=== PATIENT | male | born 1950 | race Caucasian/White ===

== ENCOUNTER 2019-01-18 07:47 | Day surgery (SDC) | payer MEDICARE, OTHER ==
[2019-01-11 11:36] LABS: HEMOGLOBIN 12.3 g/dL (13.5-17.0); MEAN CORPUSCULAR HGB CONC 33.3 g/dL (32.0-36.0); MEAN CORPUSCULAR VOLUME 90 fl (80-97); PLATELET COUNT 188 10^3/uL (150-450); RED CELL DISTRIBUTION WIDTH 13.9 % (11.5-14.0); WHITE BLOOD COUNT 5.3 10^3/uL (4.0-10.5)
[2019-01-11 12:06] LABS: ANION GAP 12 (5-19); BLOOD UREA NITROGEN 38 mg/dL (7-20); CALCIUM 9.6 mg/dL (8.4-10.2); CARBON DIOXIDE 26 mmol/L (22-30); CHLORIDE 98 mmol/L (98-107); GLUCOSE 266 mg/dL (75-110); POTASSIUM 5.9 mmol/L (3.6-5.0)
--- NOTE | 2019-01-11 13:16 | RADIOLOGY REPORT (SQ) ---
EXAM DESCRIPTION: CHEST PA/LATERAL COMPLETED DATE/TIME: 01/11/2019 11:09 am REASON FOR STUDY: PERSONAL HISTORY OF COLONIC POLYPS,ENCOUNTER FOR OTHER PREPROCEDURAL EXAMIN COMPARISON: 12/05/2014 EXAM PARAMETERS: NUMBER OF VIEWS: two views TECHNIQUE: Digital Frontal and Lateral radiographic views of the chest acquired. RADIATION DOSE: NA LIMITATIONS: none FINDINGS: LUNGS AND PLEURA: Reduced volume in the right lung compared to the earlier study. Scarrin g the right upper lobe. No infiltrate, effusion, or mass. MEDIASTINUM AND HILAR STRUCTURES: No masses or contour abnormalities. HEART AND VASCULAR STRUCTURES: Heart size is borderline. No pulmonary edema. BONES: No acute findings. HARDWARE: None in the chest. OTHER: No other significant finding. IMPRESSION: Borderline cardiomegaly without pulmonary edema. No acute pulmonary findings. TECHNICAL DOCUMENTATION: JOB ID: [id number] [employer]- All Rights Reserved Reading location - IP/workstation name: [email or web address]
--- NOTE | 2019-01-11 14:34 | EKG REPORT ---
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
[~2019-01-18 07:47] MED LIST: LACTATED RINGERS 1000 ML IV PRN; LIDOCAINE 0.5% INJ-PF (5 MG/ML) 50 ML SDV SUBCUT PRN; MIDAZOLAM 2 MG/2 ML INJ ONE; PROPOFOL INJ 200 MG/20 ML VIAL IV ONE
[2019-01-18] MEDS ORDERED: LIDOCAINE 0.5% INJ-PF (5 MG/ML) 50 ML SDV ONE (08:19)
[2019-01-18] MEDS ORDERED: MORPHINE SULFATE 10 MG/ML INJ IV PRN (11:19)
[2019-01-18] MEDS ORDERED: PROMETHAZINE HCL INJ 25 MG/1 ML VIAL IV PRN ×2 (11:19)
[2019-01-18] MEDS ORDERED: ONDANSETRON HCL INJ/PF 4 MG/2 ML SDV IV PRN (11:19)
[2019-01-18] MEDS ORDERED: DIPHENHYDRAMINE HCL 50 MG/ML VIAL IV PRN (11:19)
[2019-01-18] MEDS ORDERED: FENTANYL CITRATE INJ/PF 100 MCG/2 ML AMPUL IV PRN ×3 (11:19)
[2019-01-18] MEDS ORDERED: MEPERIDINE HCL/PF INJ 25 MG/1 ML DISP.SYRIN IV PRN (11:19)
--- NOTE | 2019-01-18 12:07 | Discharge Summary ---
Discharge Summary (SDC) - Discharge Final Diagnosis: multiple colon polyps Date of Surgery: 01/18/19 Discharge Date: 01/18/19 Condition: Stable Treatment or Instructions: Discharge home. Diet as tolerated. Activity: Nonstrenuous. Follow-up with me in 2 weeks. Referrals: ASHLEIGH DUBOIS DO [Primary Care Provider] - Discharge Diet: As Tolerated Respiratory Treatments at Home: Deep Breathing/Coughing, Incentive Spirometer Discharge Activity: Activity As Tolerated, Balance Activity w/Rest Home Care Assistance: None Needed Report the Following to Your Physician Immediately: Shortness of Breath, Nausea, Vomiting, Increase in Pain, Fever over 101 Degrees, Unusual Bleeding, Redness
--- NOTE | 2019-01-18 12:17 | Operative Report ---
Nonrecallable Operative Report DATE OF SURGERY: 01/18/19 PREOPERATIVE DIAGNOSIS: h/o colon polyps POSTOPERATIVE DIAGNOSIS: Multiple colon polyps OPERATION: 1. Colonoscopy to the cecum. 2. Snare polypectomy of multiple polyps throughout the colon. SURGEON: FRANK CROOKS ANESTHESIA: LMAC TISSUE REMOVED OR ALTERED: 1. Ascending colon polyp x2. 2. Hepatic flexure polyp. 3. Transverse colon polyp x2. 4. Descending colon polyp. 5. Colon polyp at 80 cm. 6. Polyp at 45 cm. 7. Polyp at 20 cm. COMPLICATIONS: None apparent ESTIMATED BLOOD LOSS: Minimal PROCEDURE: Procedure in detail: After informed consent was obtained, the patient was brought to the operating room and laid in the left lateral decubitus position. The endoscope was passed up the rectum, sigmoid colon, descending colon, across the transverse colon, down the ascending colon, and cecum. The ileocecal valve and appendiceal orifice were identified. The scope was then withdrawn, circumferentially noting the mucosa. The prep was good. There was a small amount of liquid stool within the colon that was easily suctioned. The scope w as withdrawn past the ascending colon, transverse colon, down the descending colon, sigmoid colon, and into the rectum. There were multiple small polyps found throughout the colon. Please see the specimen list for details about their location. There were 9 polyps removed in all. They were all removed via hot snare polypectomy. Once the rectum was reached, a retroflexion maneuver was performed, noting no significant internal hemorrhoids. The scope was straightened, air was suctioned from the rectum, the scope was removed, and the procedure was concluded. All sponge, instrument, needle counts were correct. Condition: Stable.
[2019-01-18 14:38] VITALS: BP 151/76
== END 2019-01-18 13:10 | disposition home or self-care (01) ==
LOC: OROUT 07:47
PROVIDERS: ATTEND Surgery
DX: Z12.11 Encounter for screening for malignant neoplasm of colon (principal); D12.2 Benign neoplasm of ascending colon; D12.6 Benign neoplasm of colon, unspecified; D12.3 Benign neoplasm of transverse colon; D12.4 Benign neoplasm of descending colon; Z86.010 Personal history of colon polyps; Z01.818 Encounter for other preprocedural examination; K21.9 Gastro-esophageal reflux disease without esophagitis; I10 Essential (primary) hypertension; Z85.118 Personal history of other malignant neoplasm of bronchus and lung; I48.91 Unspecified atrial fibrillation; E11.40 Type 2 diabetes mellitus with diabetic neuropathy, unspecified; G47.30 Sleep apnea, unspecified; J44.9 Chronic obstructive pulmonary disease, unspecified; Z87.891 Personal history of nicotine dependence; Z79.82 Long term (current) use of aspirin; Z79.899 Other long term (current) drug therapy; Z79.84 Long term (current) use of oral hypoglycemic drugs; Z79.4 Long term (current) use of insulin; Z79.51 Long term (current) use of inhaled steroids
CPT/HCPCS: 93005; 36415 ×2; 82962; 84132; 85027; 80048; 88305 ×2; 71046; 93010; 45385; J2250; J3490; J2704; 811

== ENCOUNTER 2019-05-02 09:44 | Day surgery (SDC) | payer MEDICARE, OTHER ==
[~2019-05-02 09:44] MED LIST changes: +CHONDR SU A NA/HYALUR INTRAOC KIT (SURGICARE) ONE; +EPINEPHRINE INJ/PF 1 MG/1 ML AMPULE ONE; +KETOROLAC TROMETHAMINE 0.45% 4 DROP/0.4 ML DROPERETTE OS PRN; -LACTATED RINGERS 1000 ML IV PRN; -LIDOCAINE 0.5% INJ-PF (5 MG/ML) 50 ML SDV SUBCUT PRN; +LIDOCAINE 1%/PHENYLEPHRINE 1.5% 1 ML VIAL ONE; -MIDAZOLAM 2 MG/2 ML INJ ONE; -PROPOFOL INJ 200 MG/20 ML VIAL IV ONE
[2019-05-02] MEDS ORDERED: FENTANYL CITRATE INJ/PF 100 MCG/2 ML AMPUL ONE (09:45)
[2019-05-02] MEDS ORDERED: MIDAZOLAM 2 MG/2 ML INJ ONE (09:45)
[2019-05-02] MEDS ORDERED: ONDANSETRON HCL INJ/PF 4 MG/2 ML SDV ONE (09:45)
[2019-05-02] MEDS: TETRACAINE HCL 0.5% OPH SOLN 4 ML OS PRN ×3 (10:50→11:28)
[2019-05-02] MEDS: TROPICAMIDE 1% OPH SOLN 15 ML OS PRN ×3 (10:50→11:10)
[2019-05-02] MEDS: CYCLOPENTOLATE 0.2%/PHENYLEPHRINE 1% OPH SOLN 2 ML OS PRN ×3 (10:50→11:10)
[2019-05-02] MEDS: BESIFLOXACIN HCL 0.6% OPH SUSP 5 ML BOTTLE OS PRN ×4 (10:50→11:47)
[2019-05-02] MEDS: DORZOLAMIDE HCL 2%/TIMOLOL MALEAT 0.5% OPH SOLN 10 ML OS PRN ×2 (11:47)
--- NOTE | 2019-05-02 13:14 | Operative Report ---
Operative Report-[facility] Operative Report: DATE OF SURGERY: 05/02/2019 PREOPERATIVE DIAGNOSIS: Cataract, left eye, Pupil Miosis POSTOPERATIVE DIAGNOSIS: Cataract, left eye, Pupil miosis OPERATION: Complex Cataract extraction with insertion of an IOL of the left eye and use of a maluygan ring due to pupil dilation of less than 4mm. Intraocular Lens Model: [22.0 sn60wf] And for surgery was difficulty seeing small print SURGEON: Reji Rosado MD ANESTHESIA: Topical PROCEDURE: After obtaining appropriate consent, the patient's left eye was prepped and draped in a sterile fashion as well as the surgeon in the sterile manner and cataract surgery was started. First a paracentesis blade was used to make a side-port incision. Viscoelastic was used to inflate the anterior chamber. Next a 2.4 mm incision was made with a 2.4 mm blade, clear corneal temporarily. A continuous capsulorrhexis was made using a cystotome and Utrata forceps. Following this hydrodissection was carried out to make the lens fully loose and mobile and it was rotated freely. Following this, a divide and conquer technique was used to phacoemulsify the lens.. The remaining cortex was removed with an irrigation/aspiration. Provisc was instilled into the capsular bag to inflate the bag. The intraocular lens was placed. The remaining viscoelastic material was removed with irrigation/aspiration. Following this, the incision was found to be watertight. Prior to making the capsulorhexis a maluygan ring was inserted due to poor pupillary dilation. This was removed at the end of the case. Besivance and Cosopt was instilled into the eye and a protective shield was placed over the eye. The patient was returned to the postoperative recovery in a stable condition.
== END 2019-05-02 12:24 | disposition home or self-care (01) ==
LOC: SC 09:44
PROVIDERS: ATTEND Internal Medicine
DX: H25.812 Combined forms of age-related cataract, left eye (principal); H57.03 Miosis; E11.9 Type 2 diabetes mellitus without complications; H01.00A Unspecified blepharitis right eye, upper and lower eyelids; H01.00B Unspecified blepharitis left eye, upper and lower eyelids; H04.123 Dry eye syndrome of bilateral lacrimal glands; Z96.1 Presence of intraocular lens
CPT/HCPCS: 66982; 82962; 00142; V2632; J2250; J3490 ×2; A9270; J0171; J3010; J2405; J2370; 142

== ENCOUNTER 2019-07-13 09:24 | Emergency (ER) | payer MEDICARE, OTHER ==
--- NOTE | 2019-07-13 09:31 | ER Document Report ---
ED Medical Screen (RME) - General Chief Complaint: Chest Pain Stated Complaint: CHEST PAIN Time Seen by Provider: 07/13/19 09:30 Primary Care Provider: ASHLEIGH DUBOIS DO [Primary Care Provider] - Follow up as needed TRAVEL OUTSIDE OF THE [place] IN LAST 30 DAYS: No - HPI Notes: 07/13/19 09:53 69-year-old male to the emergency department with complaints of chest pain across his chest since 4 AM this morning. He states that he has felt a little bit short of breath with it. He states that he is a diabetic and has high blood pressure as well as high cholesterol. 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 He states that his calf is a little bit more swollen. He also admits that he has been coughing. He denies any fevers or chills. He denies increased pain of the chest with big deep breath. He states it runs all the way from the left side over to the right but seems to be centralized in the middle. He has never had chest pain like this before. I performed a brief medical screening exam on the patient and determined that he needs further evaluation by me inside provider. I placed initial orders to help expedite his care. - Related Data Allergies/Adverse Reactions: BEE STINGS Allergy (Uncoded 07/13/19 09:40) Past Medical History - Past Medical History Cardiac Medical History: Reports: Hx Coronary Artery Disease - HIGH CHOL, Hx Hypertension - medicated Denies: Hx Heart Attack Pulmonary Medical History: Reports: Hx COPD - INHALER IF NEEDED Denies: Hx Asthma, Hx Bronchitis, Hx Pneumonia Neurological Medical History: Denies: Hx Cerebrovascular Accident, Hx Seizures GI Medical History: Denies: Hx Hepatitis, Hx Hiatal Hernia, Hx Ulcer Infectious Medical History: Denies: Hx Hepatitis Past Surgical History: Denies: Hx Open Heart Surgery, Hx Pacemaker - Immunizations Hx Diphtheria, Pertussis, Tetanus Vaccination: No - UNSURE Physical Exam - Vital signs Vitals: Pulse Ox 96 07/13/19 09:27 Course - Vital Signs Vital signs: Temp Pulse Resp BP Pulse Ox 98.4 F 96 07/13/19 09:40 07/13/19 09:27 - Laboratory Result Diagrams: 07/13/19 09:29 07/13/19 09:29 Doctor's Discharge - Discharge Referrals: ASHLEIGH DUBOIS DO [Primary Care Provider] - Follow up as needed
[2019-07-13 09:43] LABS: ABSOLUTE EOSINOPHILS # (AUTO) 0.2 10^3/uL (0.0-0.6); ABSOLUTE LYMPHOCYTES (AUTO) 1.5 10^3/uL (0.5-4.7); ABSOLUTE MONOCYTES (AUTO) 1.1 10^3/uL (0.1-1.4); ABSOLUTE NEUT (AUTO) 8.1 10^3/uL (1.7-8.2); BASOPHILS % (AUTO) 0.4 % (0-2); HEMATOCRIT 36.2 % (37.9-51.0); HEMOGLOBIN 12.4 g/dL (13.5-17.0); LYMPHOCYTES % (AUTO) 13.4 % (13-45); MEAN CORPUSCULAR HGB CONC 34.1 g/dL (32.0-36.0); MEAN CORPUSCULAR VOLUME 88 fl (80-97); MONOCYTES % (AUTO) 10.3 % (3-13); PLATELET COUNT 256 10^3/uL (150-450); RED BLOOD COUNT 4.12 10^6/uL (4.35-5.55); RED CELL DISTRIBUTION WIDTH 15.2 % (11.5-14.0); SEGMENTED NEUTROPHILS % (AUTO) 73.9 % (42-78); TOTAL CELLS COUNTED % (AUTO) 100 %; WHITE BLOOD COUNT 10.9 10^3/uL (4.0-10.5)
[2019-07-13] MEDS ORDERED: IPRATROPIUM/ALBUTEROL 0.5-2.5 MG/3 ML AMPUL NEB ONE (09:52)
[2019-07-13] MEDS ORDERED: ASPIRIN 81 MG TABLET, CHEWABLE PO ONE (09:52)
[2019-07-13 09:58] LABS: ALBUMIN 3.2 g/dL (3.5-5.0); ALKALINE PHOSPHATASE 124 U/L (38-126); ANION GAP 11 (5-19); ASPARTATE AMINO TRANSFERASE 20 U/L (17-59); BILIRUBIN,TOTAL 0.9 mg/dL (0.2-1.3); BLOOD UREA NITROGEN 28 mg/dL (7-20); CALCIUM 8.6 mg/dL (8.4-10.2); CARBON DIOXIDE 24 mmol/L (22-30); CHLORIDE 91 mmol/L (98-107); CREATINE KINASE 43 U/L (55-170); GLUCOSE 359 mg/dL (75-110); POTASSIUM 5.7 mmol/L (3.6-5.0); TOTAL PROTEIN 6.2 g/dL (6.3-8.2)
--- NOTE | 2019-07-13 09:58 | RADIOLOGY REPORT (SQ) ---
EXAM DESCRIPTION: CHEST SINGLE VIEW COMPLETED DATE/TIME: 07/13/2019 9:49 am REASON FOR STUDY: cp COMPARISON: 01/11/2019 EXAM PARAMETERS: NUMBER OF VIEWS: One view. TECHNIQUE: Single frontal radiographic view of the chest acquired. RADIATION DOSE: NA LIMITATIONS: None. FINDINGS: LUNGS AND PLEURA: Chronic scarring in the right lung. Left lung is clear. MEDIASTINUM AND HILAR STRUCTURES: No masses. Contour normal. HEART AND VASCULAR STRUCTURES: Heart normal in size. Normal vasculature. BONES: No acute findings. HARDWARE: None in the chest. OTHER: No other significant finding. IMPRESSION: NO ACUTE RADIOGRAPHIC FINDING IN THE CHEST. TECHNICAL DOCUMENTATION: JOB ID: [id number] [employer]- All Rights Reserved Reading location - IP/workstation name: [email or web address]
[2019-07-13 10:10] LABS: CREATINE KINASE MB 2.72 ng/mL (<4.55); TROPONIN I 0.018 ng/mL
[2019-07-13 10:31] LABS: INTERNATIONAL RATION (INR) 1.28
[2019-07-13 10:32] LABS: PARTIAL THROMBOPLASTIN TIME 51.5 SEC (23.5-35.8)
[2019-07-13 10:34] LABS: D-DIMER 2.22 ug/mL (0.00-0.50)
[2019-07-13 10:36] LABS: ALCOHOL < 10 mg/dL (NONE DETECTED)
[2019-07-13 11:42] LABS: APPEARANCE,URINE CLEAR; BILIRUBIN,URINE NEGATIVE (NEGATIVE); COLOR,URINE STRAW; GLUCOSE, URINE >=500 mg/dL (NEGATIVE); KETONES,URINE NEGATIVE (NEGATIVE); LEUKOCYTE ESTERASE,URINE NEGATIVE (NEGATIVE); NITRITE,URINE NEGATIVE (NEGATIVE); PROTEIN,URINE NEGATIVE (NEGATIVE); URINE SPECIFIC GRAVITY 1.005; UROBILINOGEN,URINE NEGATIVE mg/dL (<2.0)
[2019-07-13 12:06] LABS: URINE AMPHETAMINES SCREEN NEGATIVE; URINE BARBITURATES SCREEN NEGATIVE; URINE BENZODIAZEPINES SCREEN NEGATIVE; URINE COCAINE SCREEN NEGATIVE; URINE MARIJUANA (THC) SCREEN NEGATIVE; URINE METHADONE SCREEN NEGATIVE; URINE PHENCYCLIDINE SCREEN NEGATIVE
--- NOTE | 2019-07-13 13:56 | RADIOLOGY REPORT (SQ) ---
EXAM DESCRIPTION: CTA CHEST COMPLETED DATE/TIME: 07/13/2019 1:34 pm REASON FOR STUDY: chest pain/sobr/post op left foot surgery COMPARISON: Chest radiograph, PET-CT TECHNIQUE: CT scan of the chest performed using helical scanning technique with dynamic intravenous contrast injection. Images reviewed with lung, soft tissue and bone windows. Reconstructed coronal and sagittal MPR images reviewed. Additional 3 dimensional post-processing performed to develop Maximal Intensity Projection images (PA P). All images stored on PACS. All CT scanners at this facility use dose modulation, iterative reconstruction, and/or weight based d osing when appropriate to reduce radiation dose to as low as reasonably achievable (ALARA). [facility]: Dose Right [facility]: CareDose [facility]: Dose Right [facility]: Teradose 4D [facility]: Lit Building Directory CONTRAST TYPE AND DOSE: contrast/concentration: Isovue 350.00 mg/ml; Total Contrast Delivered: 64.0 ml; Total Saline Delivered: 80.0 ml Contrast bolus optimized for the pulmonary arteries. Not diagnostic for the aorta. RENAL FUNCTION: Creatinine 1.5 RADIATION DOSE: CT Rad equipment meets quality standard of care and radiation dose reduction techniq ues were employed. CTDIvol: 18.4 - 19.8 mGy. DLP: 686 mGy-cm. . LIMITATIONS: None. FINDINGS: LUNGS AND PLEURA: Chronic scarring in the right lung. Left lung clear. AORTA AND GREAT VESSELS: No aneurysm. Contrast bolus not optimized for the aorta. HEART: No pericardial effusion. No significant coronary artery calcifications. PULMONARY ARTERIES: No emboli visualized in the main pulmonary arteries or the segmental branches. HILAR AND MEDIASTINAL STRUCTURES: Chronic changes in the right hilum lie obvious recurrent mass. HARDWARE: None UPPER ABDOMEN: Stable adrenal adenomas. THYROID AND OTHER SOFT TISSUES: No masses. No adenopathy. BONES: No acute or significant finding. 3D MIPS: Confirm above findings. OTHER: No other significant finding. IMPRESSION: No pulmonary emboli. Chronic changes in the right lung without obvious evidence of recurrence. COMMENT: Quality ID # [id number]: Final reports with documentation of one or more dose reduction techniques (e.g., Automated exposure control, adjustment of the mA and/or kV according to patient size, use of iterative reconstruction technique) TECHNICAL DOCUMENTATION: JOB ID: [id number] 2016 [employer]- All Rights Reserved Reading location - IP/workstation name: [email or web address]
--- NOTE | 2019-07-13 15:02 | RADIOLOGY REPORT (SQ) ---
EXAM DESCRIPTION: VENOUS UNILATERAL LOWER COMPLETED DATE/TIME: 07/13/2019 2:53 pm REASON FOR STUDY: reccent surgeon to left leg, more swollen COMPARISON: None. TECHNIQUE: Dynamic and static denis scale and color images acquired of the left leg venous system. Se lected spectral images acquired with additional compression and augmentation maneuvers. The contralat eral common femoral vein and saphenofemoral junction were also imaged. Images stored on PACS. LIMITATIONS: None. FINDINGS: COMMON FEMORAL: Normal phasicity, compression and augmentation. No visualized echogenic ma terial on denis scale. No defects on color images. FEMORAL: Normal compression and augmentation. No visualized echogenic material on denis scale. No defe cts on color images. POPLITEAL: Normal compression, augmentation. No visualized echogenic material on denis scale. No defec ts on color images. CALF VESSELS: Normal compression, augmentation. No visualized echogenic material on denis scale. No de fects on color images. GSV and SSV: Normal compression, augmentation. No visualized echogenic material on denis scale. No def ects on color images. ANY DEEP VENOUS INSUFFICIENCY: Not evaluated. ANY EVIDENCE OF POPLITEAL CYST: No. OTHER: No other significant finding. CONTRALATERAL COMMON FEMORAL VEIN AND SAPHENOFEMORAL JUNCTION: Normal phasicity, compression and augmentation. No visualized echogenic material on denis scale. No de fects on color images. IMPRESSION: NO EVIDENCE DVT OR SVT IN THE LEFT LEG. TECHNICAL DOCUMENTATION: JOB ID: [id number] [employer]- All Rights Reserved Reading location - IP/workstation name: [email or web address]
[2019-07-13 16:17] VITALS: BP 123/51
--- NOTE | 2019-07-13 16:27 | ER Document Report ---
Entered by MARIA ESTHER MOODY SCRIBE 07/13/19 1013 Acting as scribe for:LARRY ROLDAN MD ED Cardiac - General Chief Complaint: Chest Pain Stated Complaint: CHEST PAIN Time Seen by Provider: 07/13/19 09:30 Primary Care Provider: ASHLEIGH DUBOIS DO [Primary Care Provider] - Follow up as needed Mode of Arrival: Medic Information source: Patient Notes: This 69-year-old male patient presents via EMS for complaints of a "cramp" in his chest which woke him up this morning at about 5:00am. Patient states when he went to bed last night around 10:00pm he was seemingly at baseline and he did not perform any unusual activity the last few days. Patient states he initially thought this pain was gas related so he attempted to burp without relief. Patient states the pain comes and goes and it was relieved by nitroglycerin given by EMS. Patient has an intermittent cough. Patient denies any diaphoresis, nausea, or bloody stool. TRAVEL OUTSIDE OF THE [place] IN LAST 30 DAYS: No - Related Data Allergies/Adverse Reactions: BEE STINGS Allergy (Uncoded 07/13/19 09:40) Past Medical History - General Information source: Patient - Social History Smoking Status: Former Smoker Cigarette use (# per day): No Frequency of alcohol use: None Drug Abuse: None Lives with: Alone Family History: CAD Patient has suicidal ideation: No Patient has homicidal ideation: No - Past Medical History Cardiac Medical History: Reports: Hx Coronary Artery Disease, Hx Hyperc holesterolemia, Hx Hypertension - medicated Pulmonary Medical History: Reports: Hx COPD - INHALER/O2 IF NEEDED Endocrine Medical History: Reports: Hx Diabetes Mellitus Type 2 - IDDM Renal/ Medical History: Reports: Hx Renal Insufficiency Past Surgical History: Reports: Hx Orthopedic Surgery - Left foot - Immunizations Hx Diphtheria, Pertussis, Tetanus Vaccination: No - UNSURE Review of Systems - Review of Systems Constitutional: denies: Diaphoresis EENT: No symptoms reported Cardiovascular: See HPI, Chest pain Respiratory: See HPI, Cough Gastrointestinal: denies: Nausea, Black stools Genitourinary: No symptoms reported Male Genitourinary: No symptoms reported Musculoskeletal: No symptoms reported Skin: No symptoms reported Hematologic/Lymphatic: No symptoms reported Neurological/Psychological: No symptoms reported -: Yes All other systems reviewed and negative Physical Exam - Vital signs Vitals: Pulse Ox 96 07/13/19 09:27 - Notes Notes: Physical Exam: General: Alert, appears well. HEENT: Normocephalic. Atraumatic. PERRL. Extraocular movements intact. Oropharynx clear. Neck: Supple. Non-tender. Respiratory: No respiratory distress. Wheezing bilaterally. Cardiovascular: Irregularly irregular, regular rate. Abdominal: Normal Inspection. Non-tender. No distension. Normal Bowel Sounds. Back: No gross abnormalities. Extremities: Moves all four extremities. Upper extremities: Normal inspection. Normal ROM. Lower extremities: 1+ edema bilaterally. Normal ROM. Neurological: Normal cognition. AAOx4. Normal speech. Psychological: Normal affect. Normal Mood. Skin: Warm. Dry. Normal color. Course - Re-evaluation Re-evalutation: 07/13/19 15:52 Patient reports that he has no chest pain at all not showing any signs of shortness of breath chest discomfort nausea or vomiting. Patient's heart rate continues to be A. fib with ventricular rate controlled around 70-80. Saturations are 95% plus. Patient second troponin actually less than before most recent 1 shows troponin level of 0.015 - Vital Signs Vital signs: Temp Pulse Resp BP Pulse Ox 98.4 F 78 12 120/58 L 100 07/13/19 09:40 07/13/19 13:01 07/13/19 15:07 07/13/19 13:01 07/13/19 15:07 - Laboratory Result Diagrams: 07/13/19 09:29 07/13/19 09:29 Laboratory results interpreted by me: 07/13/19 07/13/19 07/13/19 09:29 09:29 09:29 WBC 10.9 H RBC 4.12 L Hgb 12.4 L Hct 36.2 L RDW 15.2 H PT APTT D-Dimer Sodium 126.0 L Potassium 5.7 H Chloride 91 L BUN 28 H Creatinine 1.48 H Est GFR ( Amer) 57 L Est GFR (MDRD) Non-Af 47 L Glucose 359 H Creatine Kinase 43 L NT-Pro-B Natriuret Pep 1250 H Total Protein 6.2 L Albumin 3.2 L Lipase Urine Glucose (UA) 07/13/19 07/13/19 07/13/19 09:29 09:29 11:26 WBC RBC Hgb Hct RDW PT 16.0 H APTT 51.5 H D-Dimer 2.22 H Sodium Potassium Chloride BUN Creatinine Est GFR ( Amer) Est GFR (MDRD) Non-Af Glucose Creatine Kinase NT-Pro-B Natriuret Pep Total Protein Albumin Lipase 352.6 H Urine Glucose (UA) >=500 H - Diagnostic Test Radiology reviewed: Image reviewed, Reports reviewed Radiology results interpreted by me: 07/13/19 15:53 Patient had Doppler studies of lower extremity which did not disclose any deep vein thrombosis. Also patient had a CT at [facility] of chest and it did not show any pulmonary emboli. No infiltrate or any other acute process seen in chest. - EKG Interpretation by Me Additional EKG results interpreted by me: 07/13/19 10:14 12-lead EKG done 934 shows atrial fibrillation with a controlled ventricular rate of 69 PVCs noted right bundle branch block and left anterior fascicular block no other acute ST-T wave changes. Discharge - Discharge Clinical Impression: Chronic atrial fibrillation, Chest pain at rest, Status post left foot surgery, Elevated lipase Diabetes mellitus type 1 Qualifiers: Diabetes mellitus complication status: with skin complications Diabetes mellitus complication detail: with foot ulcer Qualified Code(s): E10.621 - Type 1 diabetes mellitus with foot ulcer; L97.509 - Non-pressure chronic ulcer of other part of unspecified foot with unspecified severity Condition: Stable Disposition: HOME, SELF-CARE Instructions: Chest Pain of Unclear Cause ([facility]) Additional Instructions: Pancreatitis Pancreatitis is an inflammation of the pancreas, an organ at the back of your abdomen. The pancreas produces insulin and enzymes that digest your food. Pancreatitis can be caused by gallstones in the bile duct, by alcohol or viruses, or by excess fat or calcium in the blood stream. Occasionally, pancreatitis occurs when a stomach ulcer corea through into the pancreas. We t ry to find the cause of pancreatitis, but some tests can't be done until the pancreas heals. The usual symptoms of pancreatitis are pain in the pit of the stomach that goes straight through to the back, vomiting, and low-grade fever. Severe cases require hospital admission, but many patients with mild pancreatitis do well at home. You will probably need medicine for pain and for vomiting. Sometimes we prescribe medicine to decrease stomach acid secretion and to decrease flow of pancreatic juices. Start with a diet of clear liquids (soda pop, juices). When the pain is decreasing, you can add some simple starches (potato, toast, applesauce). Avoid proteins and fats until you are completely painfree. When you're better, your doctor may suggest treatment to prevent future pa ncreatitis (such as gallbladder removal). Avoid alcohol forever. Get immediate treatment for any future episodes. Contact your doctor at once or return here if you have increasing pain, shortness of breath, general swelling, increasing size of the abdomen, continued vomiting, muscle spasms, or other new symptoms.Foot or Leg Ulcer A skin ulcer often takes a long time to heal. Skin ulcers develop where there's poor circulation or damaged tissues. You must treat this ulcer carefully. Healing can take a few weeks, or it may take many months. Elevate the foot whenever possible. You'll probably need crutches for a while. Brief gentle heat can sometimes help, but overdoing the heat will damage the tissues and make things worse. Ask your doctor if you're not sure. Because skin ulcers occur in "sick tissues," you should pay close attention to your general health. If you're diabetic, keep your blood sugar as normal as possible. If you have edema, reduce it with medication. If your blood oxygen is low, use medication to improve your breathing and ask the doctor about an oxygen tank at home. Review the treatment of all your medical problems with your doctor. Other treatments depend on the seriousness of the ulcer. An antibiotic is often prescribed at first. The ulcer should be cleaned and bandaged at least daily. If the ulceration is deep, packing the inside of the ulcer may be needed. The doctor may recommend special treatments such as whirlpool or a compressive dressing (for example, an Unna Boot). Call your primary care provider any time if you're not sure how you should take care of the ulcer. Infection can spread from the ulcer. If you develop fever, chilling, worsening pain, or increasing swelling in the area, call the doctor or return immediately. Diabetes You have an abnormally high blood sugar, suspicious for diabetes. Not all high blood sugar requires long-term treatment. High blood sugar can be due to medications, , or the stress of illness. (These cases are "borderline diabetes.") If the doctor feels your high blood sugar might get better with time, you may not require treatment now. You will be scheduled for further evaluation. It's very important that you follow through. Uncontrolled high blood sugar leads to early heart disease, strokes, nerve damage, eye damage, and kidney damage. All diabetics should follow a diet designed to control the blood sugar. Overweight diabetics should exercise regularly and lose weight. If this is not sufficient to control the blood sugar, pills or insulin shots are necessary. Younger people who develop diabetes almost always require insulin daily. Home testing of blood sugars or urine sugar is required. Diabetic teaching is available to help you figure insulin doses and monitor the blood sugar. Call the physician if there is faintness, excess sleepiness, or very rapid breathing. If hypoglycemia (LOW blood sugar) develops, symptoms are shakiness, weakness, sweating, and confusion. In this case, you should eat or drink some thing with sugar at once. Atrial Fibrillation Atrial fibrillation is an abnormal heart rhythm, caused by irregular electrical circuits in the upper heart chamber. It can be caused by heart valve disease, hardening of the arteries, or metabolic problems such as thyroid disease, or may occur without a clear cause. Atrial fibrillation may occur only occasionally, or may be chronic. Atrial fibrillation often results in a very fast heart rate, with palpitations, lightheadedness, and shortness of breath. Treatment is to slow the abnormally fast rate, and to convert the rhythm back to normal, if possible. Many patients stay in atrial fibrillation for years without symptoms or complications. Your doctor will decide whether you can be converted back to a normal heart rhythm. Contact the doctor or emergency medical system at once if you develop chest pain, shortness of breath, or severe lightheadedness, or if you develop any disturbance of consciousness, problems with speech, or localized weakness. No new prescriptions. Continue your same medications for your control of h ypertension chronic A. fib chronic anticoagulation neuropathy. Follow-up with foot rn outpatient surgery as indicated. Referrals: ASHLEIGH DUBOIS DO [Primary Care Provider] - Follow up as needed I personally performed the services described in the documentation, reviewed and edited the documentation which was dictated to the scribe in my presence, and it accurately records my words and actions.
--- NOTE | 2019-07-13 23:49 | EKG REPORT ---
SEVERITY:- ABNORMAL ECG - ATRIAL FIBRILLATION INTERPOLATED VENTRICULAR PREMATURE COMPLEX RBBB AND LAFB : Confirmed by: Beau Baker 13-Jul-2019 23:48:48
== END 2019-07-13 16:30 | disposition home or self-care (01) ==
LOC: ER 09:24
DX: I48.20 Chronic atrial fibrillation, unspecified (principal); R07.9 Chest pain, unspecified; R74.8 Abnormal levels of other serum enzymes; E10.621 Type 1 diabetes mellitus with foot ulcer; L97.509 Non-pressure chronic ulcer of other part of unspecified foot with unspecified severity; R05 Cough; I49.3 Ventricular premature depolarization; I45.2 Bifascicular block; R60.0 Localized edema; Z87.891 Personal history of nicotine dependence; Z98.890 Other specified postprocedural states; I25.10 Atherosclerotic heart disease of native coronary artery without angina pectoris; I10 Essential (primary) hypertension; J44.9 Chronic obstructive pulmonary disease, unspecified; Z79.4 Long term (current) use of insulin
CPT/HCPCS: 93005; 94640; 99285; 36415; 82553; 82962; 80307 ×2; 82550; 83690; 85025; 85610; 85730; 80053; 81001; 84484; 85379; 83880; 93971; 71045; 71275; 93010; A9270 ×2; J7620

== ENCOUNTER → 2019-08-23 | Outpatient (CLI) | payer MEDICARE, OTHER ==
--- NOTE | 2019-08-23 14:24 | RADIOLOGY REPORT (SQ) ---
EXAM DESCRIPTION: CHEST PA/LATERAL COMPLETED DATE/TIME: 08/23/2019 2:15 pm REASON FOR STUDY: NON-PRS CHRONIC ULCER OTH PRT LEFT FOOT W NECROSIS OF BONE/PNEUMOTHORAX, UN COMPARISON: 07/13/2019 EXAM PARAMETERS: NUMBER OF VIEWS: two views TECHNIQUE: Digital Frontal and Lateral radiographic views of the chest acquired. RADIATION DOSE: NA LIMITATIONS: none FINDINGS: LUNGS AND PLEURA: No opacities, masses or pneumothorax. No pleural effusion. Unchanged wi dening of the right paratracheal stripe. Chain melissa overlie right chest. Unchanged elevation of the right hemidiaphragm. MEDIASTINUM AND HILAR STRUCTURES: No masses or contour abnormalities. HEART AND VASCULAR STRUCTURES: Heart normal size. No evidence for failure. BONES: No acute findings. HARDWARE: Left approach PICC tip terminates at SVC. OTHER: No other significant finding. IMPRESSION: No evidence of acute cardiopulmonary process. TECHNICAL DOCUMENTATION: JOB ID: [id number] 2010 [employer]- All Rights Reserved Reading location - IP/workstation name: [email or web address]
--- NOTE | 2019-08-23 14:26 | RADIOLOGY REPORT (SQ) ---
EXAM DESCRIPTION: FOOT LEFT COMPLETE COMPLETED DATE/TIME: 08/23/2019 2:15 pm REASON FOR STUDY: . L97.524 NON-PRS CHRONIC ULCER OTH PRT LEFT FOOT W NECROSIS O E11.621 TYPE 2 DI ABETES MELLITUS WITH FOOT ULCER J93.9 PNEUMOTHORAX, UNSPECIFIED COMPARISON: None. NUMBER OF VIEWS: Three views. TECHNIQUE: AP, lateral and oblique radiographic images acquired of the left foot. LIMITATIONS: None. FINDINGS: MINERALIZATION: Normal. BONES: Postsurgical changes from the distal 1st metatarsal osteotomy with bony fragment about the paul gical site. No additional acute bony abnormality. Plantar calcaneal enthesophyte. JOINTS: No dislocation. SOFT TISSUES: Soft tissue defect along the medial forefoot. OTHER: No other significant finding. IMPRESSION: Postsurgical changes from the distal 1st metatarsal osteotomy with soft tissue defect an d bone fragments about the surgical site. No other evidence of acute bony abnormality. TECHNICAL DOCUMENTATION: JOB ID: [id number] 2010 [employer]- All Rights Reserved Reading location - IP/workstation name: [email or web address]
== END ==
LOC: RAD 12:52
PROVIDERS: ATTEND Nurse Practitioner Family
DX: E11.621 Type 2 diabetes mellitus with foot ulcer (principal); L97.524 Non-pressure chronic ulcer of other part of left foot with necrosis of bone; J93.9 Pneumothorax, unspecified
CPT/HCPCS: 71046

== ENCOUNTER → 2019-09-10 | Outpatient (CLI) | payer MEDICARE, OTHER ==
--- NOTE | 2019-09-10 13:40 | RADIOLOGY REPORT (SQ) ---
EXAM DESCRIPTION: ARTERIAL LOWER EXTREM BILAT IMAGES COMPLETED DATE/TIME: 09/10/2019 10:48 am REASON FOR STUDY: LEFT FOOT CHRONIC ULCER L97.522 NON-PRS CHRONIC ULCER OTH PRT LEFT FOOT W FAT LAY ER COMPARISON: None. TECHNIQUE: Dynamic and static denis scale and color images acquired of the lower extremity arteries. Additional selected spectral images recorded. LIMITATIONS: None. FINDINGS: RIGHT LEG: INFLOW ARTERIES: Normal, no obstruction evident. FEMORAL ARTERIES:Multiphasic waveforms. There is focal stenosis in the mid SFA slightly greater than 50%. POPLITEAL ARTERY:Multiphasic waveforms. Normal, no velocity elevation to suggest focal stenosis. Norm al color Doppler evaluation. No aneurysm. PATENT TIBIOPERONEAL TRUNK AND 3 VESSEL RUNOFF: Patent tibioperoneal trunk. Patent anterior tibial a nd posterior tibial artery. OTHER: No other significant finding. LEFT LEG: INFLOW ARTERIES: Normal, no obstruction evident. FEMORAL ARTERIES:Multiphasic waveforms. No high-grade stenosis. Calcified plaque throughout. POPLITEAL ARTERY:Multiphasic waveforms. Normal, no velocity elevation to suggest focal stenosis. Norm al color Doppler evaluation. No aneurysm. PATENT TIBIOPERONEAL TRUNK AND 3 VESSEL RUNOFF: Patent tibioperoneal trunk. 2 vessel runoff via the posterior tibial and anterior tibial arteries. OTHER: No other significant finding. IMPRESSION: Diffuse calcified plaque bilaterally. Slightly greater than 50% stenosis in the mid rig ht SFA. No high-grade stenosis on the left. TECHNICAL DOCUMENTATION: JOB ID: [id number] 2010 [employer]- All Rights Reserved Reading location - IP/workstation name: [email or web address]
== END ==
LOC: SP 07:30
PROVIDERS: ATTEND Nurse Practitioner Family
DX: L97.522 Non-pressure chronic ulcer of other part of left foot with fat layer exposed (principal)
CPT/HCPCS: 93925

== ENCOUNTER → 2019-09-25 | Outpatient (CLI) | payer MEDICARE, OTHER ==
--- NOTE | 2019-09-25 12:01 | RADIOLOGY REPORT (SQ) ---
EXAM DESCRIPTION: FOOT LEFT COMPLETE IMAGES COMPLETED DATE/TIME: 09/25/2019 11:52 am REASON FOR STUDY: NON-PRS CHRONIC ULCER OTH PRT LEFT FOOT W NECROSIS OF BONE L97.524 NON-PRS CHRONI C ULCER OTH PRT LEFT FOOT W NECROSIS O COMPARISON: 08/23/2019 NUMBER OF VIEWS: Three views. TECHNIQUE: AP, lateral and oblique without weight bearing radiographic images acquired of the left f oot. LIMITATIONS: None. FINDINGS: MINERALIZATION: Normal. BONES: Postsurgical changes involving the distal 1st metatarsal. This is unchanged. No conventional radiographic evidence of osteomyelitis. Small bone fragments just distal to the remaining metatarsal have changed little since prior study. JOINTS: No erosions. No ben-articular osteopenia. No chondrocalcinosis. SOFT TISSUES: Soft tissue defect is improved compared to prior study. OTHER: No other significant finding. IMPRESSION: Postsurgical changes as described. No conventional radiographic evidence of osteomyelit is. TECHNICAL DOCUMENTATION: JOB ID: [id number] 2010 [employer]- All Rights Reserved Reading location - IP/workstation name: [email or web address]
[2019-09-25 12:07] LABS: ABSOLUTE BASOPHILS # (AUTO) 0.1 10^3/uL (0.0-0.2); ABSOLUTE EOSINOPHILS # (AUTO) 0.2 10^3/uL (0.0-0.6); ABSOLUTE LYMPHOCYTES (AUTO) 2.4 10^3/uL (0.5-4.7); ABSOLUTE MONOCYTES (AUTO) 0.9 10^3/uL (0.1-1.4); ABSOLUTE NEUT (AUTO) 5.1 10^3/uL (1.7-8.2); BASOPHILS % (AUTO) 0.9 % (0-2); EOSINOPHILS % (AUTO) 2.5 % (0-6); HEMATOCRIT 38.7 % (37.9-51.0); HEMOGLOBIN 13.1 g/dL (13.5-17.0); LYMPHOCYTES % (AUTO) 27.3 % (13-45); MEAN CORPUSCULAR HEMOGLOBIN 28.9 pg (27.0-33.4); MEAN CORPUSCULAR HGB CONC 33.9 g/dL (32.0-36.0); MEAN CORPUSCULAR VOLUME 85 fl (80-97); MONOCYTES % (AUTO) 10.7 % (3-13); PLATELET COUNT 300 10^3/uL (150-450); RED BLOOD COUNT 4.54 10^6/uL (4.35-5.55); RED CELL DISTRIBUTION WIDTH 15.3 % (11.5-14.0); SEGMENTED NEUTROPHILS % (AUTO) 58.6 % (42-78); TOTAL CELLS COUNTED % (AUTO) 100 %; WHITE BLOOD COUNT 8.7 10^3/uL (4.0-10.5)
[2019-09-25 12:36] LABS: ALKALINE PHOSPHATASE 134 U/L (38-126); ANION GAP 9 (5-19); ASPARTATE AMINO TRANSFERASE 22 U/L (17-59); BILIRUBIN,TOTAL 0.5 mg/dL (0.2-1.3); BLOOD UREA NITROGEN 13 mg/dL (7-20); C-REACTIVE PROTEIN 34.9 mg/L (<10.0); CALCIUM 9.9 mg/dL (8.4-10.2); CARBON DIOXIDE 26 mmol/L (22-30); CHLORIDE 100 mmol/L (98-107); GLUCOSE 145 mg/dL (75-110); POTASSIUM 5.1 mmol/L (3.6-5.0); TOTAL PROTEIN 7.8 g/dL (6.3-8.2)
[2019-09-25 12:44] LABS: ERYTHROCYTE SEDIMENTATION RATE 49 mm/hr (0-20)
== END ==
LOC: WC 11:32
PROVIDERS: ATTEND Nurse Practitioner Family
DX: L97.524 Non-pressure chronic ulcer of other part of left foot with necrosis of bone (principal)
CPT/HCPCS: 36415; 80053; 85025; 85652; 86140

== ENCOUNTER 2019-09-27 15:31 | Emergency (ER) | payer MEDICARE, OTHER ==
--- NOTE | 2019-09-27 16:55 | ER Document Report ---
ED Wound - General Chief Complaint: Wound Recheck Stated Complaint: POST OP PROBLEM Time Seen by Provider: 09/27/19 16:47 Notes: CHIEF COMPLAINT: Possible wound VAC problem HPI: 69-year-old male presenting to the emergency department complaining of a possible wound VAC problem. Patient is diabetic. Patient states that he had a nonhealing wound on the left foot. States that they debrided the wound further today at the wound clinic at [facility] I discharged him with a wound VAC. States they told him if he saw blood to come to the emergency department. Patient saw some blood in the line, attempted to go to the clinic but it was closed when he got there at 4:00 this afternoon so he came to the emergency department. Patient reports no significant pain or other problems. ROS: See HPI - all other systems were reviewed and are otherwise negative Constitutional: no fever Integumentary: no rash Allergy: no hives Musculoskeletal: no extremity pain or swelling Neurological: no numbness/tingling, no weakness MEDICATIONS: I agree with the patient medications as charted by the RN. ALLERGIES: I agree with the allergies as charted by the RN. PAST MEDICAL HISTORY/PAST SURGICAL HISTORY: Reviewed and agree as charted by RN. SOCIAL HISTORY: Reviewed and agree as charted by RN. FAMILY HISTORY: No significant familial comorbid conditions directly related to patient complaint EXAM: Reviewed vital signs as charted by RN. CONSTITUTIONAL: Alert and oriented and responds appropriately to questions. Well-appearing; well-nourished HEAD: Normocephalic; atraumatic EYES: PERRL; Conjunctivae clear, sclerae non-icteric ENT: normal nose; no rhinorrhea; moist mucous membranes NECK: Supple without meningismus CARD: RRR; no murmurs, no clicks, no rubs, no gallops RESP: Normal chest excursion without splinting or tachypnea; breath sounds clear and equal bilaterally; no wheezes, no rhonchi, no rales, pulse oximetry 95% on room air not hypoxic ABD/GI: non-distended. BACK: The back appears normal EXT: Normal ROM in all joints; no cyanosis, no effusions, no edema SKIN: Normal color for age and race; warm; dry; good turgor; there is a wound dressing covering the left lower extremity, toes are not exposed. There is a wound VAC line coming from the dressing, there is a very scant amount of blood intermittently in the line measuring less than 5 cc likely in my estimation NEURO: Moves all extremities equally; Motor and sensory function intact PSYCH: The patient's mood and manner are appropriate. Grooming and personal hygiene are appropriate. MDM: 69-year-old male presenting for possible bleeding from a wound VAC site. Patient does not change the cartridge, there is less than 5 cc of blood intermittently through the line total. Does not appear to be hemorrhaging. I called the wound clinic and left a message but have not had a return call in the last half hour. I left another message for the physical therapy area to see if there was an on-call for the wound clinic. Patient saw Palak garces the nurse practitioner there but there is not a direct way to reach her per the heavy equipment operator apprentice. Case was discussed with Dr. chávez attending. Given the minimal amount of blood will likely discharge patient to follow-up tomorrow during regular hours of the wound clinic or to return if he has more significant bleeding. TRAVEL OUTSIDE OF THE [place] IN LAST 30 DAYS: No - Related Data Allergies/Adverse Reactions: BEE STINGS Allergy (Uncoded 07/13/19 09:40) Past Medical History - Social History Smoking Status: Unknown if Ever Smoked Family History: CAD Patient has suicidal ideation: No Patient has homicidal ideation: No - Past Medical History Cardiac Medical History: Reports: Hx Coronary Artery Disease, Hx Hypercholesterolemia, Hx Hypertension - medicated Denies: Hx Heart Attack Pulmonary Medical History: Reports: Hx COPD - INHALER/O2 IF NEEDED Denies: Hx Asthma, Hx Bronchitis, Hx Pneumonia Neurological Medical History: Denies: Hx Cerebrovascular Accident, Hx Seizures Endocrine Medical History: Reports: Hx Diabetes Mellitus Type 2 - IDDM Renal/ Medical History: Reports: Hx Renal Insufficiency GI Medical History: Denies: Hx Hepatitis, Hx Hiatal Hernia, Hx Ulcer Infectious Medical History: Denies: Hx Hepatitis Past Surgical History: Reports: Hx Orthopedic Surgery - Left foot. Denies: Hx Open Heart Surgery, Hx Pacemaker - Immunizations Hx Diphtheria, Pertussis, Tetanus Vaccination: No - UNSURE Physical Exam - Vital signs Vitals: Temp Pulse Resp BP Pulse Ox 97.8 F 51 L 20 129/59 H 100 09/27/19 15:37 09/27/19 15:37 09/27/19 15:37 09/27/19 15:37 09/27/19 15:37 Course - Re-evaluation Re-evalutation: 09/27/19 17:43 I discussed evaluation results at length with the patient. There is no blood on the wound dressing. There is minimal blood in the tubing. He is aware we were unable to reach the wound clinic he will try and call them tomorrow. I gave patient specific return instructions for increased bleeding through the tube or in the cartridge or on the dressing - Vital Signs Vital signs: Temp Pulse Resp BP Pulse Ox 97.8 F 51 L 20 129/59 H 100 09/27/19 15:37 09/27/19 15:37 09/27/19 15:37 09/27/19 15:37 09/27/19 15:37 Discharge - Discharge Clinical Impression: Visit for wound check Condition: Stable Disposition: HOME, SELF-CARE Additional Instructions: Call the wound clinic tomorrow to leave a message or discuss with them your concerns about the blood in the tube. If you have significant bleeding through the tube or in the cartridge of significant blood on the wound dressing return for reevaluation
[2019-09-27 18:26] VITALS: BP 137/59
== END 2019-09-27 18:00 | disposition home or self-care (01) ==
LOC: ER 15:31
DX: Z48.03 Encounter for change or removal of drains (principal); E11.9 Type 2 diabetes mellitus without complications; Z79.4 Long term (current) use of insulin; Z91.030 Bee allergy status
CPT/HCPCS: 99282

== ENCOUNTER 2019-10-01 12:21 | Inpatient (IN) | payer MEDICARE, OTHER ==
[2019-10-01] MEDS ORDERED: NORMAL SALINE 1000 ML 1,000 ML IV ONE (12:40)
--- NOTE | 2019-10-01 12:40 | ER Document Report ---
ED Medical Screen (RME) - General Chief Complaint: Foot Injury Stated Complaint: FOOT PAIN Time Seen by Provider: 10/01/19 12:36 Mode of Arrival: Wheelchair Information source: Patient Notes: 69-year-old male presented to ED for further work-up on a diabetic wound to the left foot. He states he needs an infectious disease evaluation. He has lab results from his bone biopsies with him. He states that Dr. Augustine first tried to treat his diabetic ulcer in April of last year it turned to gangrene he was sent to Dr. presley soto who did about bone biopsy several times in the beginning of the year and then another one last week he has the results from that bone biopsy with him. He states that he supposed to see infectious disease in the hospital today. He does not smoke drinks daily does not use any NSAIDs illicit drugs and he is retired. I have greeted and performed a rapid initial assessment of this patient. A comprehensive ED assessment and evaluation of the patient, analysis of test results and completion of medical decision making process will be conducted by an additional ED providers. TRAVEL OUTSIDE OF THE [place] IN LAST 30 DAYS: No - Related Data Allergies/Adverse Reactions: vancomycin Allergy (Verified 10/01/19 12:31) BEE STINGS Allergy (Uncoded 10/01/19 12:31) Past Medical History - Social History Chew tobacco use (# tins/day): No Frequency of alcohol use: Social Drug Abuse: None - Past Medical History Cardiac Medical History: Reports: Hx Coronary Artery Disease, Hx Hypercholesterolemia, Hx Hypertension - medicated Denies: Hx Heart Attack Pulmonary Medical History: Reports: Hx COPD - INHALER/O2 IF NEEDED Denies: Hx Asthma, Hx Bronchitis, Hx Pneumonia Neurological Medical History: Denies: Hx Cerebrovascular Accident, Hx Seizures Endocrine Medical History: Reports: Hx Diabetes Mellitus Type 2 - IDDM Renal/ Medical History: Reports: Hx Renal Insufficiency GI Medical History: Denies: Hx Hepatitis, Hx Hiatal Hernia, Hx Ulcer Infectious Medical History: Denies: Hx Hepatitis Past Surgical History: Reports: Hx Orthopedic Surgery - Left foot. Denies: Hx Open Heart Surgery, Hx Pacemaker - Immunizations Hx Diphtheria, Pertussis, Tetanus Vaccination: No - UNSURE Physical Exam - Vital signs Vitals: Temp Pulse Resp BP Pulse Ox 97.7 F 64 20 176/82 H 95 10/01/19 12:25 10/01/19 12:25 10/01/19 12:25 10/01/19 12:25 10/01/19 12:25 Course - Vital Signs Vital signs: Temp Pulse Resp BP Pulse Ox 97.7 F 64 20 176/82 H 95 10/01/19 12:25 10/01/19 12:25 10/01/19 12:25 10/01/19 12:25 10/01/19 12:25
--- NOTE | 2019-10-01 13:20 | RADIOLOGY REPORT (SQ) ---
EXAM DESCRIPTION: FOOT LEFT COMPLETE IMAGES COMPLETED DATE/TIME: 10/01/2019 1:05 pm REASON FOR STUDY: Infected diabetic ulcer with bone involvement COMPARISON: 09/25/2019 NUMBER OF VIEWS: Three views. TECHNIQUE: AP, lateral and oblique radiographic images acquired of the left foot. LIMITATIONS: None. FINDINGS: MINERALIZATION: Decreased. BONES: Postsurgical changes involving the distal 1st metatarsal. Increased cortical lucency about th e medial aspect of the surgical resection site. No additional evidence of acute bony abnormality. N o fracture. JOINTS: Plantar calcaneal enthesophyte. SOFT TISSUES: Soft tissue defect at the medial forefoot with overlying bandage material. OTHER: No other significant finding. IMPRESSION: Postsurgical changes from the distal 1st metatarsal amputation. Increased cortical luce ncy/destruction about the distal 1st metatarsal suggestive of residual/recurrent osteomyelitis. TECHNICAL DOCUMENTATION: JOB ID: [id number] 2010 [employer]- All Rights Reserved Reading location - IP/workstation name: [email or web address]
[2019-10-01 13:28] LABS: ABSOLUTE BASOPHILS # (AUTO) 0.1 10^3/uL (0.0-0.2); ABSOLUTE EOSINOPHILS # (AUTO) 0.1 10^3/uL (0.0-0.6); ABSOLUTE LYMPHOCYTES (AUTO) 2.3 10^3/uL (0.5-4.7); ABSOLUTE MONOCYTES (AUTO) 0.8 10^3/uL (0.1-1.4); ABSOLUTE NEUT (AUTO) 6.3 10^3/uL (1.7-8.2); BASOPHILS % (AUTO) 0.7 % (0-2); EOSINOPHILS % (AUTO) 1.2 % (0-6); HEMATOCRIT 37.7 % (37.9-51.0); HEMOGLOBIN 12.9 g/dL (13.5-17.0); LYMPHOCYTES % (AUTO) 23.7 % (13-45); MEAN CORPUSCULAR HEMOGLOBIN 28.7 pg (27.0-33.4); MEAN CORPUSCULAR HGB CONC 34.2 g/dL (32.0-36.0); MEAN CORPUSCULAR VOLUME 84 fl (80-97); MONOCYTES % (AUTO) 8.6 % (3-13); PLATELET COUNT 244 10^3/uL (150-450); RED BLOOD COUNT 4.49 10^6/uL (4.35-5.55); RED CELL DISTRIBUTION WIDTH 15.9 % (11.5-14.0); SEGMENTED NEUTROPHILS % (AUTO) 65.8 % (42-78); TOTAL CELLS COUNTED % (AUTO) 100 %; WHITE BLOOD COUNT 9.6 10^3/uL (4.0-10.5)
[2019-10-01 13:50] LABS: ALBUMIN 3.9 g/dL (3.5-5.0); ALKALINE PHOSPHATASE 131 U/L (38-126); ANION GAP 11 (5-19); ASPARTATE AMINO TRANSFERASE 32 U/L (17-59); BILIRUBIN,DIRECT 0.1 mg/dL (0.0-0.4); BILIRUBIN,TOTAL 0.8 mg/dL (0.2-1.3); BLOOD UREA NITROGEN 15 mg/dL (7-20); CALCIUM 9.2 mg/dL (8.4-10.2); CARBON DIOXIDE 24 mmol/L (22-30); CHLORIDE 100 mmol/L (98-107); GLUCOSE 262 mg/dL (75-110); POTASSIUM 4.7 mmol/L (3.6-5.0); TOTAL PROTEIN 7.5 g/dL (6.3-8.2)
--- NOTE | 2019-10-01 14:13 | ER Document Report ---
ED General - General Chief Complaint: Foot Injury Stated Complaint: FOOT PAIN Time Seen by Provider: 10/01/19 12:36 Mode of Arrival: Wheelchair Information source: Patient TRAVEL OUTSIDE OF THE [place] IN LAST 30 DAYS: No - HPI Onset: Other - over last several days Onset/Duration: Gradual Quality of pain: Achy Severity: Moderate Pain Level: 2 Associated symptoms: None Exacerbated by: Other - weight bearing Relieved by: Denies Similar symptoms previously: No Recently seen / treated by doctor: Yes - patient has been treated at the [facility] recently Notes: 69 year old male with a history of DM, HTN, HLD, AFib on Pradaxa sent to the ER from the [facility] for concern of a left foot infection. The patient had a metatarsal amputation on 06/25/19 at [place] and he has been following up at the [facility] since then (wound vac in place). The patient had a bone debridement and biopsy on 09/26/19. The patient was sent to the ER today due to a concern of a return of a left foot infection. The patient's left foot is erythematous and warm to palpation on the dorsum and it spreads up his mid foot to his lower leg. The patient denies fevers, chills, sweats, nausea, vomiting. - Related Data Allergies/Adverse Reactions: vancomycin Allergy (Verified 10/01/19 12:31) BEE STINGS Allergy (Uncoded 10/01/19 12:31) Past Medical History - General Information source: Patient - Social History Smoking Status: Former Smoker Chew tobacco use (# tins/day): No Frequency of alcohol use: Social Drug Abuse: None Family History: CAD Patient has suicidal ideation: No Patient has homicidal ideation: No - Past Medical History Cardiac Medical History: Reports: Hx Coronary Artery Disease, Hx Hypercholesterolemia, Hx Hypertension - medicated Denies: Hx Heart Attack Pulmonary Medical History: Reports: Hx COPD - INHALER/O2 IF NEEDED Denies: Hx Asthma, Hx Bronchitis, Hx Pneumonia Neurological Medical History: Denies: Hx Cerebrovascular Accident, Hx Seizures Endocrine Medical History: Reports: Hx Diabetes Mellitus Type 2 - IDDM Renal/ Medical History: Reports: Hx Renal Insufficiency GI Medical History: Denies: Hx Hepatitis, Hx Hiatal Hernia, Hx Ulcer Infectious Medical History: Denies: Hx Hepatitis Past Surgical History: Reports: Hx Orthopedic Surgery - Left foot. Denies: Hx Open Heart Surgery, Hx Pacemaker - Immunizations Hx Diphtheria, Pertussis, Tetanus Vaccination: No - UNSURE Review of Systems - Review of Systems Constitutional: No symptoms reported EENT: No symptoms reported Cardiovascular: No symptoms reported Respiratory: No symptoms reported Gastrointestinal: No symptoms reported Genitourinary: No symptoms reported Male Genitourinary: No symptoms reported Musculoskeletal: No symptoms reported Skin: No symptoms reported Hematologic/Lymphatic: No symptoms reported Neurological/Psychological: No symptoms reported -: Yes All other systems reviewed and negative Physical Exam - Vital signs Vitals: Temp Pulse Resp BP Pulse Ox 97.7 F 64 20 176/82 H 95 10/01/19 12:25 10/01/19 12:25 10/01/19 12:25 10/01/19 12:25 10/01/19 12:25 - Notes Notes: GENERAL: Well-appearing, well-nourished and in no acute distress. HEAD: Atraumatic, normocephalic. EYES: Pupils equal round and reactive to light, extraocular movements intact, sclera anicteric, conjunctiva are normal. ENT: Normal external ears, nares patent, oropharynx clear without exudates. Moist mucous membranes. NECK: Normal range of motion, supple without lymphadenopathy or JVD. LUNGS: Breath sounds clear to auscultation bilaterally and equal. No wheezes rales or rhonchi. HEART: Regular rate and rhythm without murmurs, rubs or gallops. ABDOMEN: Soft, nontender, normoactive bowel sounds. No guarding, no rebound. No masses appreciated. EXTREMITIES: Left foot is erythematous on dorsum with swelling and warmth (begins at surgical wound side and tracks up foot to lower leg). Normal range of motion, no pitting or edema. No clubbing or cyanosis. 1+ DP and PT pulses on left. Wound vac in place. NEUROLOGICAL: Cranial nerves II through XII grossly intact. Normal speech, normal gait. PSYCH: Normal mood, normal affect. SKIN: Warm, Dry, normal turgor, no rashes or lesions noted. Course - Re-evaluation Re-evalutation: 10/01/19 15:07 The patient has a soft tissue foot infection and likely a component of osteom ylitis based on his Xray today. I spoke with the [facility] about the patient and with the ID Doctor application software developer for the hospital. The plan is for treatment with Meropenem based on his recent bone culture results from last . General Surgery was also consulted as the patient likely will need further debridement vs ampuation. - Vital Signs Vital signs: Temp Pulse Resp BP Pulse Ox 97.7 F 64 20 176/82 H 95 10/01/19 12:25 10/01/19 12:25 10/01/19 12:25 10/01/19 12:25 10/01/19 12:25 - Laboratory Result Diagrams: 10/01/19 13:15 10/01/19 13:15 Laboratory results interpreted by me: 10/01/19 10/01/19 10/01/19 13:15 13:15 13:15 Hgb 12.9 L Hct 37.7 L RDW 15.9 H Sodium 134.5 L Glucose 262 H Alkaline Phosphatase 131 H C-Reactive Protein 32.8 H - Diagnostic Test Radiology reviewed: Image reviewed, Reports reviewed Discharge - Discharge Clinical Impression: Cellulitis of foot, Osteomyelitis of foot, left, acute Condition: Stable Disposition: ADMITTED INPATIENT Admitting Provider: Baltazar (Hospitalist) Unit Admitted: [facility]
[2019-10-01] MEDS ORDERED: MEROPENEM 1 GM VIAL IV ONE (15:01)
[2019-10-01] MEDS ORDERED: ACETAMINOPHEN 325 MG TABLET PO PRN (15:13)
[2019-10-01] MEDS ORDERED: HEPARIN SODIUM,PORCINE/D5W 25,000 UNIT/250 ML RTUINJ IV PRN (15:20)
[2019-10-01] MEDS ORDERED: DEXTROSE 40% GEL 15 GM TUBE PO PRN ×2 (15:21)
[2019-10-01] MEDS ORDERED: GLUCAGON,HUMAN RECOMB 1 MG INJ IM PRN (15:21)
[2019-10-01] MEDS ORDERED: DEXTROSE 50%-WATER 25 GM/50 ML DISP.SYRIN IV PRN ×2 (15:21)
[2019-10-01 15:27] LABS: INTERNATIONAL RATION (INR) 0.99; PROTHROMBIN TIME 13.1 SEC (11.4-15.4)
[2019-10-01] MEDS ORDERED: HYDRALAZINE HCL INJ/PF 20 MG/1 ML SDV IV PRN ×2 (15:29→15:31)
[2019-10-01] MEDS ORDERED: LEVOFLOXACIN 500 MG/D5W RTU 100 ML IV SCH (15:30)
[2019-10-01] MEDS ORDERED: PANTOPRAZOLE SODIUM 40 MG VIAL IV SCH (15:30)
[2019-10-01] MEDS ORDERED: HEPARIN SOD (PORCINE) 1,000 UNIT/ML 10 ML VIAL IV PRN (15:30)
[2019-10-01] MEDS ORDERED: MEROPENEM 500 MG VIAL IV SCH ×2 (15:30→22:00)
--- NOTE | 2019-10-01 15:46 | PDOC H&P ---
History of Present Illness Admission Date/PCP: 10/01/19 15:01 Patient complains of: Left foot osteomyelitis History of Present Illness: KAITLYN BELL is a 69 year old male with history of diabetes mellitus, hypertension, peripheral vascular disease with stent placement in the right leg, history of smoking with left lobectomy as per the patient, atrial fibrillation on Pradaxa following up with [place] [facility] for left foot infection and he has a wound VAC he has a metatarsal amputation on 06/25/2027 and is following with the [place] [facility] for wound care. Wound debridement biopsy was done on 416 and it came back enterococcus and Klebsiella. Patient received outpatient doxycycline. The wound is not improving and patient left foot became erythematous and warm to touch and the redness spread all the way up to the ankle. Patient was referred to the hospital for further management. Patient denies any history of fever chills. But complaining of severe left lower leg pain. White cell count is normal in the emergency room afebrile but the x-ray suggestive of osteomyelitis in the first metatarsal area. Surgical consult was requested and medical consult was called for admission under hospitalist services. Past Medical History Cardiac Medical History: Reports: Coronary Artery Disease, Hyperlipidema, Hypertension - medicated Denies: Myocardial Infarction Pulmonary Medical History: Reports: Chronic Obstructive Pulmonary Disease (COPD) - INHALER/O2 IF NEEDED Denies: Asthma, Bronchitis, Pneumonia Neurological Medical History: Denies: Seizures Endocrine Medical History: Reports: Diabetes Mellitus Type 2 - IDDM GI Medical History: Denies: Hepatitis, Hiatal Hernia Hematology: Denies: Anemia, Sickle Cell Disease Past Surgical History Past Surgical History: Reports: Orthopedic Surgery - Left foot Denies: Pacemaker Social History Information Source: Patient Smoking Status: Former Smoker Electronic Cigarette use?: No Hx Recreational Drug Use: No Hx Prescription Drug Abuse: No - Advance Directive Resuscitation Status: Full Code Family History Family History: CAD Parental Family History Reviewed: Yes - htn/dm Children Family History Reviewed: Yes Sibling(s) Family History Reviewed.: Yes Medication/Allergy Home Medications: Alfuzosin HCl [Uroxatral] 10 mg PO QAM 07/01/14 Aspirin [Aspirin 81 mg Chewable Tablet] 81 mg PO DAILY 07/01/14 Atorvastatin Calcium [Lipitor 80 mg Tablet] 80 mg PO DAILY 07/01/14 Cyanocobalamin (Vitamin B-12) [Vitamin B-12 1000 mcg Tablet] 1 tab PO DAILY 07/01/14 Nortriptyline HCl [Pamelor 25 Mg Capsule] 25 mg PO BID 07/01/14 [place]-3 Fatty Acids/Fish Oil [Fish Oil 1,000 Mg Capsule] 1 each PO TID 07/01/14 Pregabalin [Lyrica] 200 mg PO TID 07/01/14 Dabigatran Etexilate Mesylate [Pradaxa 150 mg Capsule] 150 mg PO Q12 01/10/19 Furosemide [Lasix 20 mg Tablet] 20 mg PO QAM 01/10/19 Insulin Glargine,Hum.rec.anlog [Lantus Insulin 100 Unit/1 ml 10 ml] 30 unit SUBCUT QAM 01/10/19 Pantoprazole Sodium [Protonix] 20 mg PO DAILY 01/10/19 Sitagliptin Phosphate [Januvia 50 mg Tablet] 50 mg PO DAILY 01/10/19 Lisinopril 20 mg PO DAILY 07/13/19 Allergies/Adverse Reactions: vancomycin Allergy (Verified 10/01/19 12:31) BEE STINGS Allergy (Uncoded 10/01/19 12:31) Review of Systems Constitutional: ABSENT: fatigue, fever(s), weakness Eyes: ABSENT: visual disturbances Ears: ABSENT: hearing changes Nose, Mouth, and Throat: ABSENT: mouth pain, sore throat Respiratory: ABSENT: cough, hemoptysis Gastrointestinal: ABSENT: abdominal pain, constipation, diarrhea, hematemesis, hematochezia, nausea, vomiting Musculoskeletal: PRESENT: other - Right foot pain. ABSENT: joint swelling Integumentary: ABSENT: rash, wounds Neurological: ABSENT: abnormal gait, abnormal speech, confusion, dizziness, focal weakness, syncope Psychiatric: ABSENT: anxiety, depression, homidical ideation, suicidal ideation Endocrine: ABSENT: cold intolerance, heat intolerance, polydipsia, polyuria Physical Exam Vital Signs: Temp Pulse Resp BP Pulse Ox 97.7 F 64 20 176/82 H 95 10/01/19 12:25 10/01/19 12:25 10/01/19 12:25 10/01/19 12:25 10/01/19 12:25 Intake & Output 09/30/19 10/01/19 10/02/19 06:59 06:59 06:59 Intake Total 1000 Balance 1000 Weight 85.7 kg General appearance: PRESENT: mild distress, well-developed Head exam: PRESENT: atraumatic Eye exam: PRESENT: PERRLA Mouth exam: PRESENT: neck supple Teeth exam: PRESENT: poor dentation Neck exam: ABSENT: carotid bruit, JVD, lymphadenopathy, thyromegaly Respiratory exam: PRESENT: decreased breath sounds Cardiovascular exam: PRESENT: irregular rhythm GI/Abdominal exam: PRESENT: normal bowel sounds, soft. ABSENT: distended, guarding, mass, organolmegaly, rebound, tenderness Rectal exam: PRESENT: deferred Extremities exam: PRESENT: other - Right foot with wound VAC and extremely painful on touch erythema extending all the way up to about the ankle region. Neurological exam: PRESENT: alert, awake, oriented to person, oriented to place, oriented to time, oriented to situation, CN II-XII grossly intact. ABSENT: motor sensory deficit Psychiatric exam: PRESENT: appropriate affect, normal mood. ABSENT: homicidal ideation, suicidal ideation Skin exam: PRESENT: dry, intact, warm. ABSENT: cyanosis, rash Results Laboratory Results: 10/01/19 13:15 10/01/19 13:15 10/01/19 10/01/19 10/01/19 13:15 13:15 13:15 WBC 9.6 RBC 4.49 Hgb 12.9 L Hct 37.7 L MCV 84 MCH 28.7 MCHC 34.2 RDW 15.9 H Plt Count 244 Seg Neutrophils % 65.8 Sodium 134.5 L Potassium 4.7 Chloride 100 Carbon Dioxide 24 Anion Gap 11 BUN 15 Creatinine 1.16 Est GFR ( Amer) > 60 Glucose 262 H Calcium 9.2 Total Bilirubin 0.8 AST 32 Alkaline Phosphatase 131 H C-Reactive Protein 32.8 H Total Protein 7.5 Albumin 3.9 Impressions: Foot X-Ray 10/01/19 12:38 IMPRESSION: Postsurgical changes from the distal 1st metatarsal amputation. Increased cortical lucency/destruction about the distal 1st metatarsal suggestive of residual/recurrent osteomyelitis. Assessment and Plan - Diagnosis (1) Osteomyelitis of foot, left, acute Is this a current diagnosis for this admission?: Yes Plan: 10/01/2019-patient is going to be admitted to [facility] for left foot osteomyelitis to admit as inpatient surgical consult was requested as per ID recommendations started on IV meropenem 2 g every 12 hours blood cultures requested MRI of the left foot was requested to start on heparin drip on hold Pradaxa. Started on IV morphine 2 mg every 4 hours PRN for pain. GI prophylaxis initiated. (2) Diabetes Qualifiers: Diabetes mellitus type: type 2 Is this a current diagnosis for this admission?: No Plan: 10/01/19-patient has history of type 2 diabetes mellitus started on insulin sliding scale diet exercise weight loss lifestyle modifications discussed with the patient and started on insulin sliding scale. (3) HTN (hypertension) Is this a current diagnosis for this admission?: No Plan: 10/01/2019-patient has history of chronic essential hypertension systolic blood pressure is more than 170 in the emergency room started on IV hydralazine 10 mg every 4 PRN for systolic blood pressure more than 170.
--- NOTE | 2019-10-01 15:56 | RADIOLOGY REPORT (SQ) ---
EXAM DESCRIPTION: CHEST 2 VIEWS IMAGES COMPLETED DATE/TIME: 10/01/2019 3:30 pm REASON FOR STUDY: dyspnea COMPARISON: 08/23/2019 EXAM PARAMETERS: NUMBER OF VIEWS: two views TECHNIQUE: Digital Frontal and Lateral radiographic views of the chest acquired. RADIATION DOSE: NA LIMITATIONS: none FINDINGS: LUNGS AND PLEURA: Chronic changes within the right lung with increased conspicuity of a 3 .3 cm ovoid opacity within the right hilum. Unchanged elevation of the right hemidiaphragm. Unremar kable left hemithorax. No pneumothorax or pleural effusion. MEDIASTINUM AND HILAR STRUCTURES: Ovoid opacity, possibly HEART AND VASCULAR STRUCTURES: Enlarged, stable. Stable prominent right hilar vasculature. BONES: No acute findings. HARDWARE: None in the chest. OTHER: No other significant finding. IMPRESSION: Postoperative changes within the right hemithorax. Increased size of the ovoid opacity within the right hilum possibly vasculature although underlying lesion not entirely excluded. Recomm end CT for further characterization. TECHNICAL DOCUMENTATION: JOB ID: [id number] 2010 [employer]- All Rights Reserved Reading location - IP/workstation name: [email or web address]
--- NOTE | 2019-10-01 16:05 | Progress Note ---
Provider Note Provider Note: [facility] ID Telephone Advice Consultation Chart reviewed. This is a 69-year-old man with multiple comorbid conditions including hypertension, hyperlipidemia, prostate ca, radiation therapy for skin cancer who has been followed at the wound clinic due to left calf chronic wounds post radiation, left foot wounds. Per notes, the wound was 1 x 1 x 0.3 cm, there was necrotic tissue, and the wounds were deep to the bone. He had a bone culture that was polymicrobial including Enterobacter cloacae (AmpC detected), Klebsiella pneumoniae, MSSA, Acinetobacter spp and Proteus spp. Patient was started on levofloxacin. His wounds don't seem to be healing for which patient decided to go to the ED and will be admitted today for the treatment of osteomyelitis. ID consulted for recommendations. 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 Hyperlipidemia Prostate Cancer radiation treatment of prostate radiation treatment of scalp Allergies: vancomycin Allergy (Verified 10/01/19 12:31) BEE STINGS Allergy (Uncoded 10/01/19 12:31) Medications: Alfuzosin HCl [Uroxatral] 10 mg PO QAM 07/01/14 Aspirin [Aspirin 81 mg Chewable Tablet] 81 mg PO DAILY 07/01/14 Atorvastatin Calcium [Lipitor 80 mg Tablet] 80 mg PO DAILY 07/01/14 Cyanocobalamin (Vitamin B-12) [Vitamin B-12 1000 mcg Tablet] 1 tab PO DAILY 07/01/14 Nortriptyline HCl [Pamelor 25 Mg Capsule] 25 mg PO BID 07/01/14 [place]-3 Fatty Acids/Fish Oil [Fish Oil 1,000 Mg Capsule] 1 each PO TID 07/01/14 Pregabalin [Lyrica] 200 mg PO TID 07/01/14 Dabigatran Etexilate Mesylate [Pradaxa 150 mg Capsule] 150 mg PO Q12 01/10/19 Furosemide [Lasix 20 mg Tablet] 20 mg PO QAM 01/10/19 Insulin Glargine,Hum.rec.anlog [Lantus Insulin 100 Unit/1 ml 10 ml] 30 unit SUBCUT QAM 01/10/19 Pantoprazole Sodium [Protonix] 20 mg PO DAILY 01/10/19 Sitagliptin Phosphate [Januvia 50 mg Tablet] 50 mg PO DAILY 01/10/19 Lisinopril 20 mg PO DAILY 07/13/19 Vital Signs: Temp Pulse Resp BP Pulse Ox 97.7 F 64 20 176/82 H 95 10/01/19 12:25 10/01/19 12:25 10/01/19 12:25 10/01/19 12:25 10/01/19 12:25 Intake & Output 09/30/19 10/01/19 10/02/19 06:59 06:59 06:59 Intake Total 1000 Balance 1000 Weight 85.7 kg Weight/Height Weight 85.7 kg Height 5 ft 8 in Laboratories: 10/01/19 13:15 10/01/19 13:15 MCV 84 fl (80-97) 10/01/19 13:15 MCH 28.7 pg (27.0-33.4) 10/01/19 13:15 MCHC 34.2 g/dL (32.0-36.0) 10/01/19 13:15 RDW 15.9 % (11.5-14.0) H 10/01/19 13:15 Seg Neutrophils % 65.8 % (42-78) 10/01/19 13:15 Chloride 100 mmol/L (98-107) 10/01/19 13:15 Carbon Dioxide 24 mmol/L (22-30) 10/01/19 13:15 Anion Gap 11 (5-19) 10/01/19 13:15 Est GFR ( Amer) > 60 (>60) 10/01/19 13:15 Glucose 262 mg/dL (75-110) H 10/01/19 13:15 Calcium 9.2 mg/dL (8.4-10.2) 10/01/19 13:15 Total Bilirubin 0.8 mg/dL (0.2-1.3) 10/01/19 13:15 AST 32 U/L (17-59) 10/01/19 13:15 Alkaline Phosphatase 131 U/L (38-126) H 10/01/19 13:15 C-Reactive Protein 32.8 mg/L (<10.0) H 10/01/19 13:15 Total Protein 7.5 g/dL (6.3-8.2) 10/01/19 13:15 Albumin 3.9 g/dL (3.5-5.0) 10/01/19 13:15 Radiology: Foot X-Ray 10/01/19 12:38 IMPRESSION: Postsurgical changes from the distal 1st metatarsal amputation. Increased cortical lucency/destruction about the distal 1st metatarsal suggestive of residual/recurrent osteomyelitis. Assessment and Recommendations: Patient with chronic wounds, worse in his left foot. He is afebrile and stable, no leukocytosis. His bone culture was positive for Enterobacter cloacae, Klebsiella pneumoniae, Proteus, Acinetobacter and MSSA. X ray of the foot consistent with worsening osteomyelitis of the first metatarsal. Will recommend meropenem 2g every 8 hr, baseline ESR and CRP. Surgery evaluation to determine duration of therapy if salvageable, 6 weeks of therapy. If he needs amputation, will reassess. For now, meropenem is adequate. Please call if questions. Shilpa Duarte MD [facility] [phone]
[2019-10-01] MEDS: NORMAL SALINE 1000 ML 1,000 ML IV PRN (16:53)
[2019-10-01] MEDS: INSULIN REG, HUMAN 100 UNIT/ML 3 ML VIAL (PYX) SUBCUT SCH ×2 (18:18→22:22)
[2019-10-01] MEDS: MEROPENEM 2 GM in NORMAL SALINE 100 ML IV SCH (18:18)
--- NOTE | 2019-10-01 19:02 | XCELERA REPORT ---
[address] [address] Transthoracic Echocardiogram Report Name: KAITLYN BELL Age: 69 yrs Gender: Male : 1950 Patient Status: Inpatient Patient Location: [address] [place] [address] Study Date: 10/01/2019 05:38 PM Height: 68 in Weight: 188 lb BSA: 2.0 m2 Procedure: A two-dimensional transthoracic echocardiogram with color flow and Doppler was performed. The study was technically difficult with many images being suboptimal in quality. Reason For Study: Atrial Fibrillation History: Atrial Fibrillation. Ordering Physician: TRICIA OTERO Performed By: Janeth Short Interpretation Summary The left ventricle is normal in size. There is normal left ventricular wall thickness. LV EF is 65% Left ventricular systolic function is normal. The left ventricular wall motion is normal. There is no thrombus. No ASD,VSD , or PFO seen. The right ventricle is normal in size and function. The right atrium is normal. The left atrium is borderline dilated. There is mild mitral annular calcification. There is no evidence of mitral valve prolapse. There is no vegetation seen on the mitral valve. There is no mitral valve stenosis. There is a trace amount of mitral regurgitation There is no aortic valvular vegetation. There is no aortic valve stenosis There is aortic sclerosis without aortic stenosis. No aortic regurgitation is present. There is no tricuspid stenosis. There is a trace amount of tricuspid regurgitation Tricuspid regurgitation jet envelope not well defined to measure RV systolic pressure accurately. There is no pulmonic valvular stenosis. There is no pulmonic valvular regurgitation. The aortic root is normal size. The inferior vena cava appeared normal and decreased > 50% with respiration (RAP 5-10 mmHg) There is no pericardial effusion. MMode/2D Measurements & Calculations RVDd: 3.3 cm LVIDd: 5.9 cm FS: 35.4 % Ao root diam: 2.7 cm IVSd: 1.0 cm LVIDs: 3.8 cm EDV(Teich): 170.7 ml Ao root area: 5.7 cm2 LVPWd: 0.97 cm ESV(Teich): 61.5 ml LA dimension: 4.0 cm EF(Teich): 64.0 % Doppler Measurements & Calculations MV E max sarah: MV P1/2t max sarah: Ao V2 max: LV V1 max P.9 cm/sec 158.0 cm/sec 178.2 cm/sec 3.2 mmHg MV A max sarah: MV P1/2t: 93.3 msec Ao max PG: LV V1 max: 37.7 cm/sec MVA(P1/2t): 2.4 cm2 12.7 mmHg 90.1 cm/sec MV E/A: 3.2 MV dec slope: 496.0 cm/sec2 MV dec time: 0.18 sec PA V2 max: MV P1/2t-pr_phl: 71.6 cm/sec 93.3 msec PA max P.1 mmHg Left Ventricle The left ventricle is normal in size. There is normal left ventricular wall thickness. LV EF is 65%. Left ventricular systolic function is normal. LV diastolic function could not be adequately assessed due to atrial fibrilation. The left ventricular wall motion is normal. There is no thrombus. No ASD,VSD , or PFO seen. Right Ventricle The right ventricle is normal in size and function. Atria The right atrium is normal. The left atrium is borderline dilated. Mitral Valve There is mild mitral annular calcification. There is no evidence of mitral valve prolapse. There is no vegetation seen on the mitral valve. There is no mitral valve stenosis. There is a trace amount of mitral regurgitation. Aortic Valve There is no aortic valvular vegetation. There is no aortic valve stenosis. There is aortic sclerosis without aortic stenosis. There is no LVOT obstruction. No aortic regurgitation is present. Tricuspid Valve There is no tricuspid stenosis. There is a trace amount of tricuspid regurgitation. Tricuspid regurgitation jet envelope not well defined to measure RV systolic pressure accurately. Pulmonic Valve There is no pulmonic valvular stenosis. There is no pulmonic valvular regurgitation. Great Vessels The aortic root is normal size. The inferior vena cava appeared normal and decreased > 50% with respiration (RAP 5-10 mmHg). Effusions There is no pericardial effusion. : TRICIA OTERO Lakshmi
--- NOTE | 2019-10-01 20:53 | PDOC CONSULTATION ---
Consultation Consult Date: 10/01/19 Provider Consulted: IESHA TRUJILLO History of Present Illness Admission Date/PCP: 10/01/19 15:01 Patient complains of: Left foot nonhealing wound. History of Present Illness: KAITLYN BELL is a 69 year old male with diabetes who has had a persistent nonhealing wound at the medial aspect of his left foot for several months. He was noted with evidence of osteomyelitis at the base of his first metatarsal which was debrided on 2 separate occasions at an outside hospital and was treated with long-term IV antibiotics and wound VAC without healing of the wo und. The antibiotics were discontinued about 3 weeks ago and over the past couple of weeks he has developed worsening erythema that now has extended past his ankle. He denies any fever. Denies any foul-smelling drainage. He had a biopsy of apparent exposed bone at the base of his wound several days ago which grew out enterococcus and Klebsiella. Patient now being admitted for his apparent osteomyelitis. Patient suffers from atrial fib for which he is on Pradaxa. He has a history of peripheral vascular disease for which he underwent a left lower extremity stent procedure several months ago. He suffers from COPD as well. He has a history of a lung cancer status post resection several years ago. He has quit smoking for the past several years. Past Medical History Cardiac Medical History: Reports: Coronary Artery Disease, Hyperlipidema, Hype rtension - medicated Denies: Myocardial Infarction Pulmonary Medical History: Reports: Chronic Obstructive Pulmonary Disease (COPD) - INHALER/O2 IF NEEDED Denies: Asthma, Bronchitis, Pneumonia Neurological Medical History: Denies: Seizures Endocrine Medical History: Reports: Diabetes Mellitus Type 2 - IDDM GI Medical History: Denies: Hepatitis, Hiatal Hernia Psychiatric Medical History: Denies: Depression Hematology: Denies: Anemia, Sickle Cell Disease Past Surgical History Past Surgical History: Reports: Orthopedic Surgery - Left foot Denies: Pacemaker Social History Smoking Status: Former Smoker Electronic Cigarette use?: No Frequency of Alcohol Use: Occasional Hx Recreational Drug Use: No Hx Prescription Drug Abuse: No - Advance Directive Resuscitation Status: Full Code Family History Family History: CAD Parental Family History Reviewed: No Children Family History Reviewed: No Sibling(s) Family History Reviewed.: No Medication/Allergy Home Medications: Alfuzosin HCl [Uroxatral] 10 mg PO QAM 07/01/14 Aspirin [Aspirin 81 mg Chewable Tablet] 81 mg PO DAILY 07/01/14 Atorvastatin Calcium [Lipitor 80 mg Tablet] 80 mg PO QHS 07/01/14 Cyanocobalamin (Vitamin B-12) [Vitamin B-12 1000 mcg Tablet] 1,000 mcg PO DAILY 07/01/14 Nortriptyline HCl [Pamelor 25 Mg Capsule] 50 mg PO QHS 07/01/14 [place]-3 Fatty Acids/Fish Oil [Fish Oil 1,000 Mg Capsule] 1 cap PO BID 07/01/14 Pregabalin [Lyrica] 200 mg PO QAM 07/01/14 Dabigatran Etexilate Mesylate [Pradaxa 150 mg Capsule] 150 mg PO Q12 01/10/19 Furosemide [Lasix 20 mg Tablet] 20 mg PO QAM 01/10/19 Insulin Glargine,Hum.rec.anlog [Lantus Insulin 100 Unit/1 ml 10 ml] 22 unit SQ QAM 01/10/19 Pantoprazole Sodium [Protonix] 20 mg PO QAM 01/10/19 Sitagliptin Phosphate [Januvia 50 mg Tablet] 50 mg PO DAILY 01/10/19 Lisinopril 20 mg PO DAILY 07/13/19 Insulin Aspart [Novolog Flexpen] 0 units SQ .PERSLIDINGSCALE 10/01/19 Pregabalin [Lyrica] 200 mg PO QPM 10/01/19 Allergies/Adverse Reactions: vancomycin Allergy (Verified 10/01/19 12:31) BEE STINGS Allergy (Uncoded 10/01/19 12:31) Physical Exam Vital Signs: Temp Pulse Resp BP Pulse Ox 97.6 F 70 22 H 155/80 H 100 10/01/19 18:00 10/01/19 18:00 10/01/19 18:00 10/01/19 18:00 10/01/19 18:00 Intake & Output 09/30/19 10/01/19 10/02/19 06:59 06:59 06:59 Intake Total 1000 Balance 1000 Weight 86.1 kg General appearance: PRESENT: no acute distress, cooperative Eye exam: PRESENT: conjunctiva pink Neck exam: PRESENT: other - Supple with no masses and no tenderness. Respiratory exam: PRESENT: clear to auscultation corrina Cardiovascular exam: PRESENT: irregular rhythm GI/Abdominal exam: PRESENT: other - Soft nondistended nontender to palpation. Extremities exam: PRESENT: other - Left foot with about a very clean open wound along the medial line of the first metatarsal with no active drainage. There is beefy red granulation tissue of the wound with no necrotic tissue visible. There is however surrounding erythema that extends up past the ankle to his lower leg with no crepitus and no discoloration. His posterior tibial pulses are palpable. I am unable to palpate his dorsalis pedis however. His foot is warm. Neurological exam: PRESENT: alert, awake Psychiatric exam: PRESENT: appropriate affect Results Laboratory Results: 10/01/19 13:15 10/01/19 13:15 10/01/19 10/01/19 10/01/19 13:15 13:15 13:15 WBC 9.6 RBC 4.49 Hgb 12.9 L Hct 37.7 L MCV 84 MCH 28.7 MCHC 34.2 RDW 15.9 H Plt Count 244 Seg Neutrophils % 65.8 Sodium 134.5 L Potassium 4.7 Chloride 100 Carbon Dioxide 24 Anion Gap 11 BUN 15 Creatinine 1.16 Est GFR ( Amer) > 60 Glucose 262 H Calcium 9.2 Total Bilirubin 0.8 AST 32 Alkaline Phosphatase 131 H C-Reactive Protein 32.8 H Total Protein 7.5 Albumin 3.9 Impressions: Foot X-Ray 10/01/19 12:38 IMPRESSION: Postsurgical changes from the distal 1st metatarsal amputation. Increased cortical lucency/destruction about the distal 1st metatarsal suggestive of residual/recurrent osteomyelitis. Chest X-Ray 10/01/19 15:16 IMPRESSION: Postoperative changes within the right hemithorax. Increased size of the ovoid opacity within the right hilum possibly vasculature although underlying lesion not entirely excluded. Recommend CT for further characterization. Assessment & Plan - Diagnosis (1) Osteomyelitis of foot, left, acute Is this a current diagnosis for this admission?: Yes Plan: Patient has failed management via limited bone resection and long-term antibiotics and wound VAC. Patient is pending MRI to better evaluate the extensiveness of his infection. Pradaxa is being held for possible surgery. Patient is however on a heparin drip. Patient will likely require at least a right great toe amputation with complete resection of his first metatarsal bone. We can perform this procedure via a heparin window if he is a high risk atrial fibrillation patient. Patient will be n.p.o. post midnight and we will hold his heparin in the morning.
[2019-10-01] MEDS ORDERED: CEFEPIME 2 GM/D5W RTU 50 ML IV SCH (22:00)
[2019-10-01] MEDS ORDERED: GUAIFENESIN 600 MG TABLET.SA PO SCH (22:00)
--- NOTE | 2019-10-01 22:00 | RADIOLOGY REPORT (SQ) ---
MR LOWER EXTREMITY WITHOUT IV CONTRAST HISTORY: Osteomyelitis of the left foot. COMPARISON: Radiographs from earlier the same day. TECHNIQUE: Multiplanar, multisequence MR imaging of the left foot was performed without the administration of intravenous gadolinium. FINDINGS: The study is limited due to lack of lateral view and multiple sequences. There is a large soft tissue defect along the medial aspect of the forefoot at the level of the first metatarsal, with prior resection of the distal first metatarsal. There is mildly decreased T1 signal in the proximal first metatarsal remnant. There is mild soft tissue swelling surrounding this region. No focal fluid collection. The remaining bony structures of the foot demonstrate normal bone marrow signal. Mild subcutaneous edema is present. The visualized tendons are grossly intact. IMPRESSION: 1. Large soft tissue wound defect along the first metatarsal amputation site with possible early osteomyelitis in the proximal first metatarsal stump. 2. No evidence of osteomyelitis in the remainder of the left foot. 3. No focal fluid collection is seen.
[2019-10-01] MEDS: MORPHINE SULFATE 10 MG/ML INJ IV PRN (22:23)
[2019-10-02 00:49] LABS: APPEARANCE,URINE CLEAR; BILIRUBIN,URINE NEGATIVE (NEGATIVE); COLOR,URINE STRAW; GLUCOSE, URINE >=500 mg/dL (NEGATIVE); KETONES,URINE NEGATIVE (NEGATIVE); LEUKOCYTE ESTERASE,URINE NEGATIVE (NEGATIVE); NITRITE,URINE NEGATIVE (NEGATIVE); PROTEIN,URINE 100 mg/dL (NEGATIVE); UROBILINOGEN,URINE NEGATIVE mg/dL (<2.0)
[2019-10-02] MEDS: MEROPENEM 2 GM in NORMAL SALINE 100 ML IV SCH (01:48)
[2019-10-02] MEDS: MORPHINE SULFATE 10 MG/ML INJ IV PRN (02:46)
[2019-10-02] MEDS: NORMAL SALINE 1000 ML 1,000 ML IV PRN (06:18)
--- NOTE | 2019-10-02 07:30 | EKG REPORT ---
SEVERITY:- ABNORMAL ECG - A FIB VENTRICULAR PREMATURE COMPLEX RBBB AND LAFB : Confirmed by: Beau Baker 02-Oct-2019 07:29:49
[2019-10-02] MEDS ORDERED: (PENDING PHARMACY ID) (Pregabalin [Lyrica] 200 MG) PO SCH ×2 (08:00→18:00)
[2019-10-02 08:13] VITALS: BP 170/68
[2019-10-02] MEDS: INSULIN REG, HUMAN 100 UNIT/ML 3 ML VIAL (PYX) SUBCUT SCH (08:28)
[2019-10-02 08:38] LABS: ABSOLUTE BASOPHILS # (AUTO) 0.1 10^3/uL (0.0-0.2); ABSOLUTE EOSINOPHILS # (AUTO) 0.2 10^3/uL (0.0-0.6); ABSOLUTE LYMPHOCYTES (AUTO) 2.2 10^3/uL (0.5-4.7); ABSOLUTE MONOCYTES (AUTO) 0.8 10^3/uL (0.1-1.4); ABSOLUTE NEUT (AUTO) 5.4 10^3/uL (1.7-8.2); BASOPHILS % (AUTO) 0.7 % (0-2); EOSINOPHILS % (AUTO) 2.4 % (0-6); HEMATOCRIT 37.6 % (37.9-51.0); HEMOGLOBIN 12.5 g/dL (13.5-17.0); LYMPHOCYTES % (AUTO) 25.5 % (13-45); MEAN CORPUSCULAR HEMOGLOBIN 28.4 pg (27.0-33.4); MEAN CORPUSCULAR HGB CONC 33.3 g/dL (32.0-36.0); MEAN CORPUSCULAR VOLUME 85 fl (80-97); MONOCYTES % (AUTO) 8.8 % (3-13); PLATELET COUNT 221 10^3/uL (150-450); RED BLOOD COUNT 4.41 10^6/uL (4.35-5.55); RED CELL DISTRIBUTION WIDTH 15.9 % (11.5-14.0); SEGMENTED NEUTROPHILS % (AUTO) 62.6 % (42-78); TOTAL CELLS COUNTED % (AUTO) 100 %; WHITE BLOOD COUNT 8.7 10^3/uL (4.0-10.5)
[2019-10-02 08:44] LABS: INTERNATIONAL RATION (INR) 0.97; PROTHROMBIN TIME 12.9 SEC (11.4-15.4)
[2019-10-02 08:45] LABS: PARTIAL THROMBOPLASTIN TIME 28.1 SEC (23.5-35.8)
[2019-10-02 09:00] LABS: ALBUMIN 3.5 g/dL (3.5-5.0); ALKALINE PHOSPHATASE 105 U/L (38-126); ANION GAP 7 (5-19); ASPARTATE AMINO TRANSFERASE 22 U/L (17-59); BILIRUBIN,DIRECT 0.1 mg/dL (0.0-0.4); BILIRUBIN,TOTAL 0.7 mg/dL (0.2-1.3); BLOOD UREA NITROGEN 15 mg/dL (7-20); CALCIUM 8.6 mg/dL (8.4-10.2); CARBON DIOXIDE 27 mmol/L (22-30); CHLORIDE 104 mmol/L (98-107); GLUCOSE 172 mg/dL (75-110); POTASSIUM 4.5 mmol/L (3.6-5.0); TOTAL PROTEIN 7.2 g/dL (6.3-8.2)
--- NOTE | 2019-10-02 09:30 | Left Against Medical Advice ---
Against Medical Advice Admission Date/Time: 10/01/19 15:01 Primary Care Provider: Date of Patient Emigration: 10/02/19 - Diagnosis: (1) Osteomyelitis of foot, left, acute Is this a current diagnosis for this admission?: Yes (2) Diabetes Is this a current diagnosis for this admission?: No (3) HTN (hypertension) Is this a current diagnosis for this admission?: No - Summary: Summary: Please see Admission and Progress Notes as well. KAITLYN BELL is a 69 M, who LEFT AGAINST MEDICAL ADVICE. The Patient was admitted on 10/01/19 15:01. (1) Osteomyelitis of foot, left, acute Is this a current diagnosis for this admission?: Yes Plan: 10/01/2019-patient is going to be admitted to [facility] for left foot osteomyelitis to admit as inpatient surgical consult was requested as per ID recommendations started on IV meropenem 2 g every 12 hours blood cultures requested MRI of the left foot was requested to start on heparin drip on hold Pradaxa. Started on IV morphine 2 mg every 4 hours PRN for pain. GI prophylaxis initiated. 2219-patient was started on IV heparin drip last night and he refused lab work and heparin drip was discontinued. Surgical team came and talked to him about possible surgery but the patient refused. We tried to convince him to stay to arrange for a PICC line at least to get IV antibiotic therapy as an outpatient but patient left the hospital by signing AMA. She understood the risks involved by leaving the hospital AGAINST MEDICAL ADVICE he had verbalized response (2) Diabetes Qualifiers: Diabetes mellitus type: type 2 Is this a current diagnosis for this admission?: No Plan: 10/01/19-patient has history of type 2 diabetes mellitus started on insulin sliding scale diet exercise weight loss lifestyle modifications discussed with the patient and started on insulin sliding scale. (3) HTN (hypertension) Is this a current diagnosis for this admission?: No Plan: 10/01/2019-patient has history of chronic essential hypertension systolic blood pressure is more than 170 in the emergency room started on IV hydralazine 10 mg every 4 PRN for systolic blood pressure more than 170.
[2019-10-02] MEDS ORDERED: (PENDING PHARMACY ID) (Omega-3 Fatty Acids/Fish Oil [Fish Oil 1,000 Mg Capsule] 1 CAP) PO SCH (10:00)
[2019-10-02] MEDS ORDERED: OMEGA-3 ACID ETHYL ESTERS 1 GM CAPSULE PO SCH (10:00)
[2019-10-02] MEDS ORDERED: CYANOCOBALAMIN (VITAMIN B-12) 1,000 MCG TABLET PO SCH (10:00)
--- NOTE | 2019-10-02 10:11 | PDOC PROGRESS REPORT ---
Subjective Progress Note for:: 10/02/19 Subjective:: 69-year-old diabetic male with osteomyelitis of the foot. The patient has bony destruction of the first metatarsal. He has an open wound, that is nonhealing. He reports pain and redness of the foot. He denies fevers, chills, nausea, vomiting, chest pain, shortness of breath, dizziness, orthostasis, fatigue, malaise. Reason For Visit: CELLULITIS OF FOOT OSTEOMYELITIS OF FOOT LEFT ACUT Physical Exam Vital Signs: Temp Pulse Resp BP Pulse Ox 98.0 F 67 23 H 170/68 H 95 10/02/19 07:20 10/02/19 07:20 10/02/19 07:20 10/02/19 07:20 10/02/19 07:20 Intake & Output 10/01/19 10/02/19 10/03/19 06:59 06:59 06:59 Intake Total 2229 Output Total 1100 Balance 1129 Weight 87.4 kg General appearance: PRESENT: no acute distress, disheveled Head exam: PRESENT: atraumatic, normocephalic Eye exam: PRESENT: EOMI, PERRLA Mouth exam: PRESENT: moist, neck supple Neck exam: ABSENT: thyromegaly, tracheal deviation, tracheostomy Respiratory exam: PRESENT: unlabored. ABSENT: tachypnea, wheezes Cardiovascular exam: ABSENT: tachycardia Vascular exam: ABSENT: pallor GI/Abdominal exam: PRESENT: soft. ABSENT: distended, tenderness Rectal exam: PRESENT: deferred Extremities exam: PRESENT: other - Left foot with open wound to the medial aspect. It measures approximately 4 cm x 2 cm. There is minimal granulation present. There is no active purulence. There is erythema extending up the foot, to approximately the level of the ankle. There is tenderness to palpation of the left foot. Musculoskeletal exam: PRESENT: tenderness - See above Neurological exam: PRESENT: alert, awake, oriented to person, oriented to place, oriented to time, oriented to situation Psychiatric exam: PRESENT: agitated, anxious Focused psych exam: ABSENT: delusional Skin exam: PRESENT: erythema - See above. ABSENT: cyanosis, jaundice Results Laboratory Results: 10/02/19 08:10 10/02/19 08:10 10/01/19 10/01/19 10/01/19 13:15 13:15 13:15 WBC 9.6 RBC 4.49 Hgb 12.9 L Hct 37.7 L MCV 84 MCH 28.7 MCHC 34.2 RDW 15.9 H Plt Count 244 Seg Neutrophils % 65.8 Sodium 134.5 L Potassium 4.7 Chloride 100 Carbon Dioxide 24 Anion Gap 11 BUN 15 Creatinine 1.16 Est GFR ( Amer) > 60 Glucose 262 H Calcium 9.2 Total Bilirubin 0.8 AST 32 Alkaline Phosphatase 131 H C-Reactive Protein 32.8 H Total Protein 7.5 Albumin 3.9 Urine Color Urine Appearance Urine pH Ur Specific [place] Urine Protein Urine Glucose (UA) Urine Ketones Urine Blood Urine Nitrite Ur Leukocyte Esterase Urine RBC (Auto) 10/02/19 10/02/19 10/02/19 00:30 08:10 08:10 WBC 8.7 RBC 4.41 Hgb 12.5 L Hct 37.6 L MCV 85 MCH 28.4 MCHC 33.3 RDW 15.9 H Plt Count 221 Seg Neutrophils % 62.6 Sodium 137.5 Potassium 4.5 Chloride 104 Carbon Dioxide 27 Anion Gap 7 BUN 15 Creatinine 1.23 Est GFR ( Amer) > 60 Glucose 172 H Calcium 8.6 Total Bilirubin 0.7 AST 22 Alkaline Phosphatase 105 C-Reactive Protein Total Protein 7.2 Albumin 3.5 Urine Color STRAW Urine Appearance CLEAR Urine pH 7.0 Ur Specific [place] 1.010 Urine Protein 100 H Urine Glucose (UA) >=500 H Urine Ketones NEGATIVE Urine Blood SMALL H Urine Nitrite NEGATIVE Ur Leukocyte Esterase NEGATIVE Urine RBC (Auto) 0 Impressions: Lower Extremity MRI 10/01/19 00:00 IMPRESSION: 1. Large soft tissue wound defect along the first metatarsal amputation site with possible early osteomyelitis in the proximal first metatarsal stump. 2. No evidence of osteomyelitis in the remainder of the left foot. 3. No focal fluid collection is seen. Foot X-Ray 10/01/19 12:38 IMPRESSION: Postsurgical changes from the distal 1st metatarsal amputation. Increased cortical lucency/destruction about the distal 1st metatarsal suggestive of residual/recurrent osteomyelitis. Chest X-Ray 10/01/19 15:16 IMPRESSION: Postoperative changes within the right hemithorax. Increased size of the ovoid opacity within the right hilum possibly vasculature although underlying lesion not entirely excluded. Recommend CT for further characterization. Assessment & Plan - Diagnosis (1) Diabetes Qualifiers: Diabetes mellitus type: type 2 Is this a current diagnosis for this admission?: Yes (2) Osteomyelitis of foot, left, acute Is this a current diagnosis for this admission?: Yes - Plan Summary Plan Summary: This is a 69-year-old male with osteomyelitis of the left foot. The patient has been receiving treatment by the wound care clinic. He was sent to the hospital for evaluation for possible surgery. I have discussed treatment options with him at length this morning. He has several options. He could continue with antibiotics and watchful waiting. This is unlikely to be successful, but at this time his foot is not acutely threatened (there is low risk for severe complications with this approach). A more reasonable approach involves amputation of the infected tissue. I have discussed both local metatarsoph alangeal amputation versus below-knee amputation. The patient is not interested in either surgical option. The patient has declined any surgical intervention at this time. In light of this decision, I have recommended continued antibiotics and close follow-up. I have discussed the case with Dr. Ledesma, and updated him regarding the patient's decisions. Surgery will see him again on an as-needed basis. Please renotify with any questions or concerns.
[2019-10-02] MEDS ORDERED: PREGABALIN 100 MG CAPSULE PO SCH (18:00)
[2019-10-02] MEDS ORDERED: TAMSULOSIN HCL 0.4 MG CAP.SR.24H PO SCH (18:00)
[2019-10-02] MEDS ORDERED: NORTRIPTYLINE HCL 25 MG CAPSULE PO SCH (22:00)
[2019-10-02] MEDS ORDERED: ATORVASTATIN CALCIUM 80 MG TABLET PO SCH (22:00)
== END 2019-10-02 09:10 | disposition left against medical advice (07) | DRG 638 ==
LOC: ER 12:21 → EH 15:01 → 3S 17:39
PROVIDERS: ADMIT Internal Medicine; ATTEND Internal Medicine
DX: E11.69 Type 2 diabetes mellitus with other specified complication (principal); M86.172 Other acute osteomyelitis, left ankle and foot; B99.9 Unspecified infectious disease; Y83.8 Other surgical procedures as the cause of abnormal reaction of the patient, or of later complication, without mention of misadventure at the time of the procedure; I48.91 Unspecified atrial fibrillation; E11.51 Type 2 diabetes mellitus with diabetic peripheral angiopathy without gangrene; I25.10 Atherosclerotic heart disease of native coronary artery without angina pectoris; E78.5 Hyperlipidemia, unspecified; J44.9 Chronic obstructive pulmonary disease, unspecified; B96.1 Klebsiella pneumoniae [K. pneumoniae] as the cause of diseases classified elsewhere; B95.61 Methicillin susceptible Staphylococcus aureus infection as the cause of diseases classified elsewhere; B96.4 Proteus (mirabilis) (morganii) as the cause of diseases classified elsewhere; Z90.2 Acquired absence of lung [part of]; Z95.820 Peripheral vascular angioplasty status with implants and grafts; Z79.51 Long term (current) use of inhaled steroids; Z87.891 Personal history of nicotine dependence; Z82.49 Family history of ischemic heart disease and other diseases of the circulatory system; Z88.1 Allergy status to other antibiotic agents; Z79.899 Other long term (current) drug therapy; Z79.4 Long term (current) use of insulin; Z79.01 Long term (current) use of anticoagulants; Z85.118 Personal history of other malignant neoplasm of bronchus and lung; Z89.412 Acquired absence of left great toe; Z85.46 Personal history of malignant neoplasm of prostate; Z85.828 Personal history of other malignant neoplasm of skin; Z92.3 Personal history of irradiation; Z91.030 Bee allergy status
CPT/HCPCS: 36415; 71046; 80053; 81001; 82962; 85025; 85610; 85652; 85730; 86140; 87040; 93005; 93010; 93306; 96360; 99285; C9113; J1644; J1815; J2185; J2270; J3490; J7030; J7050

== ENCOUNTER → 2019-12-30 | Outpatient (CLI) | payer MEDICARE, OTHER ==
--- NOTE | 2019-12-30 12:51 | RADIOLOGY REPORT (SQ) ---
EXAM DESCRIPTION: FOOT LEFT COMPLETE IMAGES COMPLETED DATE/TIME: 12/30/2019 11:56 am REASON FOR STUDY: NON-PRS CHRONIC ULCER OTH PRT LEFT FOOT W FAT LAYER EXPOSED L97.522 NON-PRS CHRON IC ULCER OTH PRT LEFT FOOT W FAT LAYER L97.524 NON-PRS CHRONIC ULCER OTH PRT LEFT FOOT W NECROSIS O E11.621 TYPE 2 DIABETES MELLITUS WITH FOOT ULCER COMPARISON: 10/01/2019 NUMBER OF VIEWS: Three views. TECHNIQUE: AP, lateral and oblique radiographic images acquired of the left foot. LIMITATIONS: None. FINDINGS: MINERALIZATION: Normal. BONES: The distal portion of the 1st metatarsal been resected. There appears to be healing of the dajuan ne proximally JOINTS: No effusions. SOFT TISSUES: No soft tissue swelling. No foreign body. OTHER: No other significant finding. IMPRESSION: Healing/ healed osteomyelitis in the 1st metatarsal. TECHNICAL DOCUMENTATION: JOB ID: [id number] 2010 [employer]- All Rights Reserved Reading location - IP/workstation name: [email or web address]
== END ==
LOC: WC 11:37
PROVIDERS: ATTEND Preventive Medicine Undersea and Hyperbaric Medicine
DX: E11.621 Type 2 diabetes mellitus with foot ulcer (principal); L97.522 Non-pressure chronic ulcer of other part of left foot with fat layer exposed; L97.524 Non-pressure chronic ulcer of other part of left foot with necrosis of bone

== ENCOUNTER → 2020-06-01 | Outpatient (CLI) | payer MEDICARE, OTHER ==
--- NOTE | 2020-06-02 08:54 | RADIOLOGY REPORT (SQ) ---
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 TECHNIQUE: Dynamic and static denis scale and color images acquired of the lower extremity arteries. Additional selected spectral images recorded. ABIs recorded. LIMITATIONS: None. FINDINGS: RIGHT LEG: ABIS: Posterior tibial 0.53. Dorsalis pedis 0.49. INFLOW ARTERIES: Peak systolic velocity 2.33 m/sec. FEMORAL ARTERIES:Biphasic waveforms. Increased velocity in the mid femoral artery, 4.75 m/sec. POPLITEAL ARTERY:Biphasic waveforms. Normal, no velocity elevation to suggest focal stenosis. Normal color Doppler evaluation. No aneurysm. PATENT TIBIOPERONEAL TRUNK AND 3 VESSEL RUNOFF: Monophasic waveforms. TBI: Not performed. OTHER: No other significant finding. LEFT LEG: ABIS: Posterior tibial 0.64. Dorsalis pedis 0.6. INFLOW ARTERIES: Peak systolic velocity 2.03 m/sec. FEMORAL ARTERIES:Biphasic waveforms. Increased velocity in the mid femoral artery, 3.83 m/sec. POPLITEAL ARTERY:Monophasic waveforms. Normal, no velocity elevation to suggest focal stenosis. Marianela l color Doppler evaluation. No aneurysm. PATENT TIBIOPERONEAL TRUNK AND 3 VESSEL RUNOFF: Monophasic waveform. TBI: Not performed. OTHER: No other significant finding. IMPRESSION: FOCAL STENOSES IN BOTH RIGHT AND LEFT FEMORAL ARTERIES. ANKLE-BRACHIAL INDICES CONSISTE NT WITH CLAUDICATION. COMMENT: [facility] NORMAL: Greater than 1.0 MINIMAL DISEASE: 0.9 to 1.0 CLAUDICATION: 0.5 to 0.9 SEVERE ARTERIAL DISEASE: Less than 0.5 [facility] NORMAL: Greater than 1.0 (1.2 If Heavy Calcifications) NORMAL TO MILD ISCHEMIA: 0.8 to 1.0 MODERATE ISCHEMIA: 0.4 to 0.8 SEVERE ISCHEMIA: Less than 0.4 TECHNICAL DOCUMENTATION: JOB ID: [id number] [employer]- All Rights Reserved Reading location - IP/workstation name: [email or web address]
--- NOTE | 2020-06-02 08:54 | RADIOLOGY REPORT (SQ) ---
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 TECHNIQUE: Dynamic and static denis scale and color images acquired of the lower extremity arteries. Additional selected spectral images recorded. ABIs recorded. LIMITATIONS: None. FINDINGS: RIGHT LEG: ABIS: Posterior tibial 0.53. Dorsalis pedis 0.49. INFLOW ARTERIES: Peak systolic velocity 2.33 m/sec. FEMORAL ARTERIES:Biphasic waveforms. Increased velocity in the mid femoral artery, 4.75 m/sec. POPLITEAL ARTERY:Biphasic waveforms. Normal, no velocity elevation to suggest focal stenosis. Normal color Doppler evaluation. No aneurysm. PATENT TIBIOPERONEAL TRUNK AND 3 VESSEL RUNOFF: Monophasic waveforms. TBI: Not performed. OTHER: No other significant finding. LEFT LEG: ABIS: Posterior tibial 0.64. Dorsalis pedis 0.6. INFLOW ARTERIES: Peak systolic velocity 2.03 m/sec. FEMORAL ARTERIES:Biphasic waveforms. Increased velocity in the mid femoral artery, 3.83 m/sec. POPLITEAL ARTERY:Monophasic waveforms. Normal, no velocity elevation to suggest focal stenosis. Marianela l color Doppler evaluation. No aneurysm. PATENT TIBIOPERONEAL TRUNK AND 3 VESSEL RUNOFF: Monophasic waveform. TBI: Not performed. OTHER: No other significant finding. IMPRESSION: FOCAL STENOSES IN BOTH RIGHT AND LEFT FEMORAL ARTERIES. ANKLE-BRACHIAL INDICES CONSISTE NT WITH CLAUDICATION. COMMENT: [facility] NORMAL: Greater than 1.0 MINIMAL DISEASE: 0.9 to 1.0 CLAUDICATION: 0.5 to 0.9 SEVERE ARTERIAL DISEASE: Less than 0.5 [facility] NORMAL: Greater than 1.0 (1.2 If Heavy Calcifications) NORMAL TO MILD ISCHEMIA: 0.8 to 1.0 MODERATE ISCHEMIA: 0.4 to 0.8 SEVERE ISCHEMIA: Less than 0.4 TECHNICAL DOCUMENTATION: JOB ID: [id number] [employer]- All Rights Reserved Reading location - IP/workstation name: [email or web address]
== END ==
LOC: SP 11:09
PROVIDERS: ATTEND Nurse Practitioner Family
DX: L97.222 Non-pressure chronic ulcer of left calf with fat layer exposed (principal); L97.212 Non-pressure chronic ulcer of right calf with fat layer exposed; L97.522 Non-pressure chronic ulcer of other part of left foot with fat layer exposed
CPT/HCPCS: 93922; 93925